=== PATIENT | female | born 1950 | race Caucasian/White ===

== ENCOUNTER 2020-09-16 13:31 | Emergency (ER) | payer OTHER ==
--- NOTE | 2020-09-16 15:59 | RAD REPORT ---
EXAM DESCRIPTION: RAD - Knee Left 3 View - 09/16/2020 3:01 pm CLINICAL HISTORY: PAIN, left knee, no precipitating event COMPARISON: No comparisons FINDINGS: No fracture, dislocation or periosteal reaction.No measurable joint effusion seen. There i s minimal spurring along the superior articular margin of the patella. No joint space narrowing. No s oft tissue abnormality. IMPRESSION: Negative left knee for acute bone or joint finding. Clinical concerns for internal derangement or occult bony injury could be further assessed with MR im aging.
[2020-09-16] MEDS ORDERED: HYDROCODONE/APAP 5/325 MG TAB ONE (16:47)
--- NOTE | 2020-09-16 17:25 | ER ---
Nurse's Notes [facility] Name: Darlene Carpio Age: 70 yrs Sex: Female : 1950 Arrival Date: 09/16/2020 Time: 14:12 Bed 23 Private MD: Diagnosis: Pain in left knee Presentation: 09/16 14:13 Chief complaint: Patient states: L knee pain for several weeks. No trauma or falls. ll1 Coronavirus screen: Client denies travel out of the [place] in the last 14 days. At this time, the client does not indicate any symptoms associated with coronavirus-19. Ebola Screen: Patient denies travel to an Ebola-affected area in the 21 days before illness onset. Initial Sepsis Screen: Does the patient meet any 2 criteria? No. Patient's initial sepsis screen is negative. Does the patient have a suspected source of infection? Yes: Bone or joint infection. Risk Assessment: Do you want to hurt yourself or someone else? Patient reports no desire to harm self or others. Onset of symptoms was August 27, 2020. 14:13 Method Of Arrival: Wheelchair ll1 14:13 Acuity: JESSIE 4 ll1 Historical: - Allergies: 14:16 PENICILLINS; ll1 - PMHx: 14:16 Diabetes - NIDDM; Hypertension; GERD; Depression; High Cholesterol; ll1 - PSHx: 14:16 knee, back, shoulders, wrist; Hysterectomy; ll1 - Immunization history:: Client reports receiving the 2nd dose of the Covid vaccine, Flu vaccine is up to date. - Social history:: Smoking status: Patient reports the use of cigarette tobacco products, smokes one pack cigarettes per day. Screenin:23 Abuse screen: Denies threats or abuse. Denies injuries from another. Nutritional ca1 screening: No deficits noted. Tuberculosis screening: No symptoms or risk factors identified. Fall Risk Ambulatory Aid- Crutches/Cane/Walker (15 pts). Total Stauffer Fall Scale indicates No Risk (0-24 pts). Assessment: 16:23 General: Appears in no apparent distress. comfortable, Behavior is calm, cooperative, ca1 appropriate for age. Pain: Complains of pain in left knee Pain currently is 8 out of 10 on a pain scale. at worst was 10 out of 10 on a pain scale. Pain began 3 weeks Aggravated by weight bearing. Neuro: Level of Consciousness is awake, alert, obeys commands, Oriented to person, place, time, situation, Appropriate for age. Derm: Skin is intact, is healthy with good turgor, Skin is pink, warm \T\ dry. Musculoskeletal: Circulation, motion, and sensation intact. Capillary refill < 3 seconds. Vital Signs: 14:13 BP 113 / 63; Pulse 77; Resp 16; Temp 97.1; Pulse Ox 98% ; Weight 76.66 kg; Height 5 ft. ll1 2 in. (157.48 cm); Pain 8/10; 16:23 BP 126 / 59; Pulse 77; Resp 18 S; Pulse Ox 98% on R/A; ca1 14:13 Body Mass Index 30.91 (76.66 kg, 157.48 cm) ll1 ED Course: 14:12 Patient arrived in ED. ll1 14:14 Triage completed. ll1 14:16 Arm band placed on. ll1 15:01 Knee Left 3 View XRAY In Process Unspecified. EDMS 16:05 Claudia Bolivar FNP-C is PHCP. kb 16:05 Evans Ram MD is Attending Physician. kb 16:09 Merna Raines, LOUISE is Primary Nurse. ca1 16:23 Patient has correct armband on for positive identification. Bed in low position. Call ca1 light in reach. Side rails up X 1. Pulse ox on. NIBP on. 17:24 US Extremity Venous Unilateral Ltd In Process Unspecified. EDMS 17:30 No provider procedures requiring assistance completed. Patient did not have IV access ca1 during this emergency room visit. Administered Medications: 16:31 Drug: [place] (HYDROcodone-acetaminophen) 5 mg-325 mg 1 tabs {Note: rass 0.} Route: PO; ca1 17:55 Follow up: Response: No adverse reaction; Pain is decreased; RASS: Alert and Calm (0) ca1 Outcome: 17:24 Discharge ordered by . kb 17:30 Discharged to home via wheelchair, with family. ca1 17:30 Condition: stable 17:30 Discharge instructions given to patient, Instructed on discharge instructions, follow up and referral plans. no drinking with medication, no driving heavy equipment, medication usage, Demonstrated understanding of instructions, follow-up care, medications, Prescriptions given X 1. 17:56 Patient left the ED. ca1 Signatures: Dispatcher [employer] Claudia Samano, INFECTIOUS DISEASES PHYSICIAN-C INFECTIOUS DISEASES PHYSICIAN-Merna Levin, RN RN ca1 Lauren Holm RN RN ll1
--- NOTE | 2020-09-16 17:25 | EDPHYS ---
Physician Documentation [facility] Name: Darlene Carpio Age: 70 yrs Sex: Female : 1950 Arrival Date: 09/16/2020 Time: 14:12 Bed 23 Private MD: ED Physician Evans Ram HPI: 09/16 17:43 This 70 yrs old Female presents to ER via Wheelchair with complaints of Knee kb Pain. 17:43 The patient presents with pain, that is acute. The patient has not experienced similar kb symptoms in the past. The patient has not recently seen a physician. 17:49 The complaints affect the left knee. Context: The problem was sustained at an unknown kb site, resulted from an unknown cause, the patient can fully bear weight, can ambulate using a cane, Problem is a result from a previous injury: No. Onset: The symptoms/episode began/occurred 3 week(s) ago. Modifying factors: The symptoms are alleviated by nothing. the symptoms are aggravated by bending knee. Associated signs and symptoms: The patient has no apparent associated signs or symptoms. Treatment prior to arrival includes: joshua wrap. Severity of symptoms: At their worst the symptoms were moderate, in the emergency department the symptoms are unchanged. Pt reports pain to left knee for 3 weeks, no injury or trauma. . Historical: - Allergies: 14:16 PENICILLINS; ll1 - PMHx: 14:16 Diabetes - NIDDM; Hypertension; GERD; Depression; High Cholesterol; ll1 - PSHx: 14:16 knee, back, shoulders, wrist; Hysterectomy; ll1 - Immunization history:: Client reports receiving the 2nd dose of the Covid vaccine, Flu vaccine is up to date. - Social history:: Smoking status: Patient reports the use of cigarette tobacco products, smokes one pack cigarettes per day. ROS: 17:42 Constitutional: Negative for fever, chills, and weight loss, Respiratory: Negative for kb shortness of breath, cough, wheezing, and pleuritic chest pain, Skin: Negative for injury, rash, and discoloration, Neuro: Negative for headache, weakness, numbness, tingling, and seizure. 17:42 MS/extremity: Positive for decreased range of motion, pain, of the left knee. Exam: 17:42 Constitutional: This is a well developed, well nourished patient who is awake, alert, kb and in no acute distress. Head/Face: Normocephalic, atraumatic. Respiratory: Respirations even and unlabored. No increased work of breathing, no retractions or nasal flaring. Skin: Warm, dry with normal turgor. Normal color. Neuro: Awake and alert, GCS 15, oriented to person, place, time, and situation. Moves all extremities. Normal gait. 17:42 Musculoskeletal/extremity: Extremities: grossly normal except: noted in the left knee: decreased ROM, pain, ROM: limited active range of motion due to pain, in the left knee, Circulation is intact in all extremities. Sensation intact. Weight bearing: can bear weight with assistance only, uses cane. Vital Signs: 14:13 BP 113 / 63; Pulse 77; Resp 16; Temp 97.1; Pulse Ox 98% ; Weight 76.66 kg; Height 5 ft. ll1 2 in. (157.48 cm); Pain 8/10; 16:23 BP 126 / 59; Pulse 77; Resp 18 S; Pulse Ox 98% on R/A; ca1 14:13 Body Mass Index 30.91 (76.66 kg, 157.48 cm) ll1 MDM: 16:05 Patient medically screened. kb 17:39 Data reviewed: vital signs, nurses notes. Data interpreted: Pulse oximetry: on room air kb is 98 %. Interpretation: normal. Counseling: I had a detailed discussion with the patient and/or guardian regarding: the historical points, exam findings, and any diagnostic results supporting the discharge/admit diagnosis, radiology results, the need for outpatient follow up, a family practitioner, to return to the emergency department if symptoms worsen or persist or if there are any questions or concerns that arise at home. 09/16 14:24 Order name: Knee Left 3 View XRAY; Complete Time: 16:05 kb 09/16 16:26 Order name: US Extremity Venous Unilateral Ltd kb Administered Medications: 16:31 Drug: [place] (HYDROcodone-acetaminophen) 5 mg-325 mg 1 tabs {Note: rass 0.} Route: PO; ca1 17:55 Follow up: Response: No adverse reaction; Pain is decreased; RASS: Alert and Calm (0) ca1 Disposition: 19:07 Co-signature as Attending Physician, Evans Ram MD. rn Disposition: 09/16/20 17:24 Discharged to Home. Impression: Pain in left knee. - Condition is Stable. - Discharge Instructions: Knee Pain, [id number]. - Prescriptions for Tramadol 50 mg Oral Tablet - take 1 tablet by ORAL route every 8 hours as needed; 12 tablet. - Medication Reconciliation Form, Thank You Letter, Antibiotic Education, Prescription Opioid Use form. - Follow up: Emergency Department; When: As needed; Reason: Worsening of condition. Follow up: Private Physician; When: 2 - 3 days; Reason: Recheck today's complaints, Continuance of care, Re-evaluation by your physician. Signatures: Dispatcher [employer] EDMS Claudia Bolivar, NATIONAL DEDICATED TRUCK DRIVER-C NATIONAL DEDICATED TRUCK DRIVER-CkEvans Armstrong MD MD rn Chipob, Merna RN RN ca1 Lauren Holm RN RN ll1 Corrections: (The following items were deleted from the chart) 17:56 17:24 09/16/2020 17:24 Discharged to Home. Impression: Pain in left knee. Condition is ca1 Stable. Forms are Medication Reconciliation Form, Thank You Letter, Antibiotic Education, Prescription Opioid Use. Follow up: Emergency Department; When: As needed; Reason: Worsening of condition. Follow up: Private Physician; When: 2 - 3 days; Reason: Recheck today's complaints, Continuance of care, Re-evaluation by your physician. kb
--- NOTE | 2020-09-16 17:59 | RAD REPORT ---
EXAM DESCRIPTION: US - Extremity Venous Uni Ltd - 09/16/2020 5:25 pm CLINICAL HISTORY: PAIN COMPARISON: None. TECHNIQUE: Real-time sonographic evaluation of the left lower extremity deep venous system was perfo rmed. FINDINGS: Normal compressibility, flow augmentation, phasic flow and spontaneous flow are identified in the left lower extremity common femoral, superficial femoral, popliteal and posterior tibial vein s. No intraluminal filling defects seen. IMPRESSION: No DVT in the left lower extremity.
[2020-09-16 18:01] VITALS: TEMP 97.1; O2SAT 98
[2020-09-16 18:08] VITALS: BP 126/59
== END 2020-09-16 17:56 | disposition home or self-care (01) ==
LOC: ER 13:31
DX: M25.562 Pain in left knee (principal); I10 Essential (primary) hypertension; E11.9 Type 2 diabetes mellitus without complications; F17.210 Nicotine dependence, cigarettes, uncomplicated; Z88.0 Allergy status to penicillin
CPT/HCPCS: 93971; 99284

== ENCOUNTER 2021-08-10 05:28 | Observation (INO) | payer OTHER ==
[2021-08-05 09:58] LABS: Absolute Lymphocytes (CBC) 3.8 K/uL (0.7-4.9); Hematocrit 34.3 % (36.0-45.0); Lymphocytes % 23.8 % (15.3-44.8); RBC Red Blood Cell Count 4.03 M/uL (3.86-4.86)
[2021-08-05 09:58] LABS: Urine Appearance CLEAR (Clear); Urine Bilirubin NEGATIVE (Negative); Urine Blood NEGATIVE (Negative); Urine Color YELLOW (Yellow); Urine Glucose NEGATIVE (Negative); Urine Protein NEGATIVE (Negative); Urine Urobilinogen 0.2 mg/dL (0.2-1.0); Urine pH 6.5 (5.0-7.0)
[2021-08-05 09:59] LABS: Urine Microscopic Reflex NO UMIC
--- NOTE | 2021-08-05 10:05 | RAD REPORT ---
EXAM DESCRIPTION: RAD - Chest Pa And Lat (2 Views) - 08/05/2021 9:54 am CLINICAL HISTORY: pre op pending left knee arthroplasty Chest pain. COMPARISON: No comparisons FINDINGS: The lungs are clear. The heart is normal in size. No displaced fractures. IMPRESSION: No acute or concerning finding suspected.
[2021-08-05 10:06] LABS: Protime INR 0.87
[2021-08-05 10:29] LABS: Albumin 3.9 g/dL (3.4-5.0); Bilirubin Total 0.4 mg/dL (0.2-1.0); Potassium 4.5 mmol/L (3.5-5.1); Protein, Total 7.5 g/dL (6.4-8.2)
[2021-08-10] MEDS ORDERED: FENTANYL CITR 100 MCG/2 ML ONE (05:48)
[2021-08-10] MEDS ORDERED: dexAMETHasone 10 MG/ML VIAL ONE ×2 (05:48→06:05)
[2021-08-10] MEDS ORDERED: MIDAZOLAM HCL 2 MG/2 ML INJ ONE (05:48)
[2021-08-10] MEDS ORDERED: LIDOCAINE 1% MPF 5 ML VIAL ONE (05:48)
[2021-08-10] MEDS ORDERED: BUPIVACAINE 0.25% PF 10 ML VIAL ONE (05:48)
[2021-08-10] MEDS ORDERED: SODIUM BICARB 50 MEQ/50ML VIAL ONE (05:49)
[2021-08-10] MEDS ORDERED: CELECOXIB 100 MG CAPSULE ONE (05:57)
[2021-08-10] MEDS ORDERED: ACETAMINOPHEN 500 MG TAB ONE (05:58)
[2021-08-10] MEDS ORDERED: Oxycodone HCl/Acetaminophen 1 TAB TAB ONE (05:58)
[2021-08-10] MEDS ORDERED: GABAPENTIN 100 MG CAP ONE (05:58)
[2021-08-10] MEDS ORDERED: NA CHLORIDE 0.9% 1,000 ML ONE ×2 (05:59→09:44)
[2021-08-10] MEDS ORDERED: propofoL 200 MG/20 ML VIAL IV ONE (06:05)
[2021-08-10] MEDS ORDERED: KETOROLAC 30 MG/ML INJ ONE (06:05)
[2021-08-10] MEDS ORDERED: KETAMINE HCL 500 MG/5 ML VIAL ONE (06:05)
[2021-08-10] MEDS ORDERED: ONDANSETRON 4 MG/2 ML VIAL ONE (06:05)
[2021-08-10] MEDS ORDERED: LIDOCAINE 2% MPF 5 ML VIAL ONE (06:05)
[2021-08-10] MEDS ORDERED: HYDROMORPHONE HCL 1 MG/ML INJ ONE (07:14)
[2021-08-10] MEDS ORDERED: D5W IV ONE (07:30)
[2021-08-10] MEDS ORDERED: TRANEXAMIC ACID 1,000 MG in NA CHLORIDE 0.9% 50 ML IV SCH (07:30)
[2021-08-10] MEDS ORDERED: CLINDAMYCIN IV ONE (07:30)
[2021-08-10] MEDS ORDERED: ONDANSETRON 4 MG/2 ML VIAL IV PRN (09:06)
[2021-08-10] MEDS ORDERED: DOCUSATE NA 100 MG CAP PO PRN (09:06)
--- NOTE | 2021-08-10 09:06 | P.BOP ---
Preoperative diagnosis: left knee arthritis Postoperative diagnosis: same Primary procedure: left total knee arthoplasty Estimated blood loss: 50ccs Anesthesia: General Complications: None Transferred to: Recovery Room Condition: Good
[2021-08-10] MEDS ORDERED: ESMOLOL HCL 10 ML IV ONE (09:17)
[2021-08-10] MEDS: HYDROMORPHONE HCL 1 MG/ML INJ ONE ×2 (09:35→10:45)
[2021-08-10] MEDS ORDERED: PROMETHAZINE INJ 25 MG/ML AMP ONE (09:38)
--- NOTE | 2021-08-10 09:43 | OP ---
Date of Procedure: 08/10/2021 Surgeon: Tung Fowler MD Preoperative Diagnosis: Left knee arthritis. Postoperative Diagnosis: Left knee arthritis. Procedure: Left total knee arthroplasty using [email or web address] total knee system. Estimated Blood Loss: 50 cc. Complications: There were no complications. Indication For Operation: Ms. Carpio is a 71-year-old female, who unfortunately had pain in her left k nee for quite some time. This persisted despite conservative care. Risks, benefits, and alternative s to total knee arthroplasty have been discussed with the patient in detail. She states that she und erstands things as presented and requests a total knee arthroplasty and agrees to proceed. Description Of Procedure: The patient was taken to the operating room and placed in supine position. General anesthesia was obtained by staff. Following this, a well-padded tourniquet was placed on t he superior left thigh. Left lower extremity was then prepped and draped in the usual sterile fashio n. Following this, the leg was then elevated, exsanguinated, and knee was bent. The tourniquet was raised. After this, a standard anterior midline incision was taken down carefully through the skin a nd soft tissues. Meticulous hemostasis was being maintained using Bovie electrocautery. This leads down to the extensor mechanism. Extensor mechanism was then divided using a standard medial parapate llar arthrotomy. There was a scanty appearing normal joint fluid. Following this, the knee was then extended. The patella was everted. There was found to be degenerative changes of both the patella as well as reciprocal changes along the trochlea. There were also some degenerative changes of the l ateral compartment; however, was not extensive amount of arthritic change. Following this, a standar d intramedullary alignment guide was then placed with the distal cut. The distal cut was then made. It was then sized and the distal femur was then cut in standard fashion. After this, attention was then brought to the tibia, which was then cut in standard fashion. The ACL, PCL, and menisci have be en previously resected. After this, attention was then turned to patella and was found to be only 20 mm thick. Decision was made to leave 13 mm and a patellar cut was made medializing the patellar imp lant in the patella. The trial implants were then placed. It was then brought through range of ziggy on. The patella was found to track well and appeared to be well aligned. After this, the trial comp onents were removed. The box was then cut in standard fashion followed by punching of the tibia. Th e joint surfaces were then prepped for cementation. After this, the final tibia, femur, and patella are cemented into place with the polyethylene trial being used as a spacer as the cement was allowed to harden. Following this, a size 12 polyethylene was then placed and locked in position using locki ng bar. The knee was then again examined to ensure there were no unsupported cement also. It does c ome to full extension quite easily with full flexion and appeared to be balanced in flexion and exten pepito. Also stable to varus, valgus, appears to have excellent alignment. Patella tracked well. Aft er this, the wound was again irrigated and the extensor mechanism was then repaired using heavy Ethib ond sutures. This was followed by irrigation and closure of skin using Vicryl followed by octavio. The patient was then placed in a well-padded sterile dressing, awakened, and taken to recovery in goo d condition. No complications. SE/MODL Voice ID: [id number] Report ID: [id number]
--- OUTSIDE RECORDS SUMMARY | 2021-08-10 10:29 | XMS REPORT | Continuity of Care Document ---
:1950 Author Organization [facility] t Address [address] [place] [address] Care Team Providers Name Role Phone Solcher Attending Clinician Unavailable Garry Bass Attending Clinician Unavailable Partha Alvarado Attending Clinician Unavailable Zack Nava Attending Clinician Unavailable BISMARK Damon Attending Clinician Unavailable PROVIDER, TAIWO Attending Clinician Unavailable Payers Payer Name Policy Type Policy Number Effective Date Expiration Date S ource Problems Condition Condition Condition Status Onset Resolution Last Treating Co mments Source Name Details Category Date Date Treatment Clinician Date Problem No known ASSERTION [facility] Allergies, Adverse Reactions, Alerts Allergy Allergy Status Severity Reaction(s) Onset Inactive Treating Comm ents Source Name Type Date Date Clinician Penicill DA Active U 2019-[address] [facility] [facility] [place] Penicill Allergy Active 2020-[address] [facility] 5[facility]18 [facility] [place] ([place] Social History Smoking Status Start Date Stop Date Source Unknown if ever smoked [facility] Medications Ordered Filled Start Stop Current Ordering Indication Dosage Frequency Signature Comments Components Source Medication Medication Date Date Medication? Clinician (SIG) Name Name Meloxicam 2019-0 No General 15MG Daily [facility] [place] ([place] Metformin 2020-0 No General 500MG Twice [facility] Daily [facility] [place] ([place] Omeprazole 2019-0 No General 20MG Bedtime [facility] - [facility] [place] ([place] Atorvastati 2019-0 No General 40MG Bedtime [facility] Calcium 5-18 [facility] - 00:00: Hospital [address] [place] Bupropion 2020-0 No General 300MG Daily [facility] [address] [place]) Fluoxetine 2020-0 No General 20MG Daily [facility] - 00[facility]: Hospital [address] [place]) Hydrocodone 2020-0 No General 1TAB As Needed [facility] /Acetaminop 5-18 Acute Care PRN For [facility] 00:[facility]: Hospital Pain [address] [place]) Levothyroxi 2020-0 No General 50MCG Daily [facility] ne Sodium 5-18 Acute Care [facility] - 00:00: Hospital [address] [place]) Lisinopril 2020-0 No General 2.5MG Bedtime [facility] - [facility] [address] [place]) Meloxicam 2020-0 No General 15MG Daily [facility] - 00[facility]: Hospital [address] [place]) Metformin 2020-0 No General 500MG Twice [facility] Daily [facility] - 00:[facility]: Hospital [address] [place]) Omeprazole 2020-0 No General 20MG Bedtime [facility] 5[facility]18 [facility] - 00:00: Hospital [address] [place]) Atorvastati 2020-0 No General 40MG Bedtime [facility] Calcium 5-18 Acute Care [facility] - 00:00: Hospital [address] [place]) Bupropion 2020-0 No General 300MG Daily [facility] - 00:[facility]: Hospital [address] [place]) Fluoxetine 2020-0 No General 20MG Daily [facility] - 00:[facility]: Hospital [address] [place]) Hydrocodone 2020-0 No General 1TAB As Needed [facility] /Acetaminop 5-18 Acute Care PRN For [facility] - hen 00:00: Hospital Pain [address] [place]) Levothyroxi 2020-0 No General 50MCG Daily [facility] Sodium 5-18 Acute Care [facility] - 00:00: [facility] ([place] Lisinopril No General 2.5MG Bedtime [facility] - 00:[facility]: Hospital [address] ([place]) Vital Signs Vital Name Observation Time Observation Value Comments Source WEIGHT 2021-04-02 16:03:39 80.088899 kg HEIGHT 2021-04-02 16:03:39 154.94 cm WEIGHT 2021-04-02 15:59:13 80.577700 kg HEIGHT 2021-04-02 15:59:13 154.94 cm WEIGHT 2021-04-02 15:55:41 80.224378 kg HEIGHT 2021-04-02 15:55:41 154.94 cm WEIGHT 2021-04-02 15:53:11 80.417228 kg HEIGHT 2021-04-02 15:53:11 154.94 cm Body Temperature 2021-03-31 10:48:[address] [facility] ([place]) Heart Rate 2021-03-31 10:48:[address] [facility] ([place]) Respiratory Rate 2021-03-31 10:48:[facility] O2 % BldC Oximetry 2021-03-31 10:48:[address] [facility] ([place]) BP Systolic 2021-03-31 10:48:[address] [facility] ([place]) BP Diastolic 2021-03-31 10:48:[address] [facility] ([place]) Height 2019-10-14 13:48:00 154.94 [address] [facility] ([place]) Weight Measured 2019-10-14 13:48:00 80.73 kg [facility] ([place]) BMI (Body Mass Index) 2019-10-14 13:48:00 33.6 kg/m2 [facility] ([place]) Procedures Procedure Date / Time Performed Performing Clinician Sourc e XR Fluoro Per Hour 2019-10-16 00:00:[address] [facility] ([place]) EKG 12 Lead 2019-10-14 00:00:[address] [facility] ([place]) Encounters Start End Encounter Admission Attending Care Care Encounter Source Date/Time Date/Time Type Type Clinicians Facility Department ID 2021-06-[address] [facility] [id number] [facility] ent [facility] 2017-04-25 [id number]:00 Yoseph -[id number] Geeta Titus ([facility] n) 2019-10-16 2019-10-16 Departed Ritchie Bass [id number]. [facility] [id number] [facility] 06:55:00 14:30:00 Surgical Lam [id number]. Regional [facility] [id number]. [facility] St. 1.2 Jabari Elizondo) 2019-10-16 2019-10-16 Outpatient Shelia [facility] [id number] 13:30:00 13:30:00 Lam -[id number] Julian [facility] ([place]) 2019-10-14 2019-10-14 Outpatient Shelia [facility] [id number] 13:30:00 13:30:00 Lam -[id number] Julian [facility] ([place]) 2019-10-14 2019-10-14 Departed Ritchie Bass 2.16.840. [facility] J000 [id number] [facility] 07:45:00 07:46:00 Clinical Lam [id number]. Regional [facility] [id number]. [facility] C[facility] St. 1.2 [place] ([place]) 2019-08-13 2019-08-13 Outpatient Shelia [facility] [id number] 11:00:00 11:00:00 Lam -[id number] Julian [facility] ([place]) 2019-03-18 2019-03-18 Outpatient Lam Campbell [facility] [id number] [facility] 09:49:00 09:50:00 -[id number] Julian [facility] ([place]) 2019-01-31 2019-02-25 Outpatient MELISA Lomas [id number] [facility] 08:00:00 23:59:00 Sameer -[id number] Julian Titus ([facility] n) 2019-01-25 2019-01-26 Outpatient MELISA Lomas [id number] 10:00:00 23:59:00 Sameer -[id number] Julian Titus ([facility] n) 2017-06-01 2017-06-28 Outpatient MELISA Martinez [id number] 11:00:00 23:59:00 Yoseph [id number] Julian Titus ([facility]) 2017-05-25 2017-05-28 Outpatient MELISA Martinez [id number] 11:00:00 23:59:00 Yoseph -[id number] Julian Titus ([facility]) 2017 2017 Emergency ER JAMES Damon [facility] [id number] 12:37:00 15:15:00 Melyssa [id number] Tyrone [facility] ([place]) Results Test Description Test Time Test Comments Results Result Comments Source Reference Lab Testing 2019-10-15 11:53:00 Test Item Value Reference Range Interpretation Comme nts Reference Lab Testing Not Detected NotDetected Negati ve (Not Detected) results (test code = [id number]) do no t preclude infectionwith SARS-CoV-2 viru s, and should not be the sole bas is of apatient management deci pepito. Consider testing for oth erviruses if clinically alfred cated.The use of this assay as a n In vitro diagnostic unde r theFDA Emergency Use Authorizati on (EUA) is limited tolabor atories that are certified under the ClinicalLaborat ory Improvement Amendments of 1 988 (CLIA), 42 U.S.C.263a, to perform high complexity test s. Comment ER 10/15Laboratory [id number] 14:35:00Coronavirus (COVID-19)(PCR) [facility] ([place])[id number] 14:35:00 Test Item Value Reference Range Interpretation Comments Urinalysis (test code = YELLOW Yellow UACLR) Urinalysis (test code = CLEAR Clear UACLY) Urinalysis (test code = 1.027 1.002-1.036 N SPGR) Urinalysis (test code = 6.0 5.0-9.0 N ARELY) Urinalysis (test code = Small Negative A UALEU) Urinalysis (test code = Negative Negative UANIT) Urinalysis (test code = Negative mg/dL Neg-Trace PROUADIP) Urinalysis (test code = Negative mg/dL Negative GLUCU) Urinalysis (test code = Negative mg/dL Negative KETU) Urinalysis (test code = 1.0 mg/dL 0.2-1.0 UAUROB) Urinalysis (test code = Negative Negative UABIL) Urinalysis (test code = Negative Negative UABLD) Urinalysis (test code = 0-3 HPF 0-3 UARBC) Urinalysis (test code = 11-20 HPF 0-3 A UAWBC) Urinalysis (test code = 7-10 HPF 0-3 A UASQUAM) Urinalysis (test code = None Seen HPF None Seen UABAC) Urinalysis (test code = 0-3 HYALINE CAST LPF 0-3 Hyaline UACAST) Urine Source: Urine VoidedCT Lumbar Spine [facility] Pt Name: ABEBA NICOLE [address] [facility]. Phys: [place] [address] : 1950 Age: 69 SEX:F [phone] Exam Date: 08/13/19 Status: REG CLI Acct: [id number] Loc: BICCT Pt Unit #: [id number] Report #: [id number] CC: Lam Bass MD CAT SCAN REPORT Order # Category/Exam [id number] CT/CT Lumbar Spine WO Con ([id number]): . Results Exam: CT lumbar spine without contrast HISTORY: Low back pain. Bilateral lower extremity radiculopathy. Comparison none FINDINGS: No paraspinal mass, lymphadenopathy orhematoma. Atherosclerosis of a nonaneurysmal aorta Visualized alimentary canal is unremarkable. Nonobstructing calcification in the right renal pelvis. 5 lumbar type vertebra. Lumbar spine vertebral body height is maintained. There is no fracture. No spondylolisthesis. No spondylolysis Vacuum joint phenomenon in both SI joints. Sacral ala are preserved. Sacral neural foramina are also unremarkable. There is appropriate fat attenuation in left and right neural foramina at S1, S2 and S3. Thereis no presacral fat stranding. Technique limits evaluation of the contents of the central spinal canal and neural foramina T12-L1: No significant central canal stenosis or significant neural foraminal narrowing L1-L2: No significant central canal stenosis or significant neural foraminal narrowing L2-L3: Moderate loss of disc space height. Broad-based disc bulge, ligamentum flavum thickening and facet hypertrophy result in mild central canal stenosis. Mild bilateral neural foraminal narrowing L3-L4: Vacuum disc phenomenon. Moderate loss of disc space height. Broad-based disc bulge, ligamentum flavum thickening and facet hypertrophy result in moderate central canal stenosis. Moderate bilateral neural foraminal narrowing L4-L5: Broad-based disc bulge, ligament flavum thickening and facet hypertrophy result in mild central canal stenosis. Mild to moderate bilateral neural foraminal narrowing L5-S1: Broad-based disc bulge abuts the thecal sac. There is encroachment upon both subarticular zones. Partial obscuration of bilateral traversing S1 nerve roots. Mild bilateral foraminal narrowing. IMPRESSION: 1. Multilevel degenerative changes lumbar spine as detailed above. 2. No evidence of fracture. Reported By: Jacqui Kim MD Electronically Signed Date/Time: 08/13/19 1202 Technologist: TOYIN Dictated Date/Time: 08/13/19 1157 Transcribed Date/Time:MRI Lumbar Spine [facility] Pt Name: ABEBA NICOLE [address] [facility]. Phys: [place] [address] : 1950 Age: 69 SEX:F [phone] Exam Date: 03/18/19 Status: REG CLI Acct: [id number] Loc: [facility] Pt Unit #: [id number] Report #: [id number] CC: Lam Alvarado NP OUT OF TOWN PHYSICIAN MRI REPORT Order # Category/Exam [id number] MRI/MRI Lumbar Spine WO Con ([id number]): . Results MRI LUMBAR SPINE NONCONTRAST: HISTORY: Compression fracture of the lumbar vertebrae. Low back pain for many years. COMPARISON: Lumbar spine MRI [facility] is not available for comparison at this time. FINDINGS: Slightly heterogeneous marrow signal intensity of the lumbar vertebra likely representing senescent change. Lumbarspine vertebral body height is maintained. There is no fracture. No significant STIR hyperintensity to suggest vertebral body edema or ligamentous injury. Appropriate signal intensity of the paraspinal muscles. Appropriate signal intensity of the visualized solid organs. Conus medullaris terminates at the T12-L1 disc space. T12-L1:No significant central canal stenosis or significant neural foraminal narrowing. L1-L2:Disc desiccation without significant loss of disc space height. Minimal broad-based disc bulge flattens the ventral thecal sac. No significant central canal stenosis or significant neural foraminal narrowing. L2-L3:Desiccation with mild to moderate loss of disc space height. Broad-based disc bulge, ligamentum flavum thickening and facet hypertrophyresult in moderate central canal stenosis. Mild to moderate right neural foraminal narrowing. Mildleft neural foraminal narrowing. L3- L4:Desiccation with moderate to severe loss of disc space height. Broad-based disc bulge, ligament flavum thickening and facet hypertrophy result in moderate central canal stenosis. Mild to moderate bilateral neural foraminal narrowing. L4-L5:Desiccationwithout significant loss of disc space height. Broad-based disc bulge, ligament flavum thickening and facet hypertrophy result in mild central canal stenosis. Mild to moderate right and mild left neural foraminal narrowing. L5-S1:Desiccation without significant loss of disc space height. Central disc protrusion. Ligament flavum thickening and facet hypertrophy are noted. Mild central canal stenosis. Mild right and left neural foraminal narrowing. IMPRESSION: Degenerative changes of the lumbar spine as detailed above. Transcribed Date/Time: 03/18/2019 12:21 PM Reported By: Jacqui Kim MD Electronically Signed Date/Time: 03/18/19 1310 Technologist: RANDI Dictated Date/Time: 03/18/19 1133 Transcribed Date/Time:
[2021-08-10 13:02] VITALS: BMI 29.2
--- NOTE | 2021-08-10 13:22 | P.CNS ---
Date of Consult: 08/10/21 Requesting Physician: Tung Fowler Chief Complaint: Left knee pain History of Present Illness: Patient is 71-year-old female with a past medical history of tobacco smoking, COPD, hypertension, hyperlipidemia and type 2 diabetes mellitus. She is currently admitted under orthopedic surgery for an elective knee replacement. Today is postop day 0 status post left total knee arthroplasty. Patient was seen by me after her surgery for medical management. During our encounter, her mental status was intact. Her pain was controlled. There was no acute complaints. Allergies Penicillins Allergy (Verified 08/05/21 08:56) Unsure, told as child Home Medications: Albuterol Inhaler [Ventolin Inhaler] 2 puff IH Q6H PRN 08/05/21 Atorvastatin Calcium [Lipitor] 40 mg PO BEDTIME 08/05/21 Cyclobenzaprine [Flexeril] 10 mg PO DAILYPRN PRN 08/05/21 Diclofenac Sodium [Voltaren] 75 mg PO DAILYPRN PRN 08/05/21 Furosemide [Lasix] 40 mg PO DAILY 08/05/21 Gabapentin 300 mg PO BEDTIME 08/05/21 Levothyroxine [Synthroid] 50 mcg PO [id number] 08/05/21 Lisinopril [Zestril] 2.5 mg PO BEDTIME 08/05/21 Metformin HCl [Glucophage] 500 mg PO BIDWM 08/05/21 Omeprazole 20 mg PO DAILY 08/05/21 Ondansetron HCl 4 mg PO PRN PRN 08/05/21 Sertraline [Zoloft] 100 mg PO DAILY 08/05/21 - Past Medical/Surgical History Diabetic: Yes -: DM -: hypertension -: hypothyroid -: depression -: sleep apnea -: emphysema -: right knee replaced -: bilateral shoulder rotator cuff -: back surgery, removed L4 -: appendectomy -: right wrist twice -: cataracts - Family History Mother Medical History: Heart disease, Hypertension, Diabetes Notes: age 84 Father Medical History: Heart disease, Hypertension, Other (see notes) Notes: passed at age 65. 3 heart attacks - Social History Smoking Status: Current every day smoker Alcohol use: Yes CD- Drugs: No Caffeine use: Yes Place of Residence: Home Physical Examination Temp Pulse Resp BP Pulse Ox 98.3 F 82 18 115/60 100 08/10/21 11:47 08/10/21 11:47 08/10/21 11:47 08/10/21 11:47 08/10/21 11:47 General: Alert, In no apparent distress, Cooperative HEENT: Atraumatic, Normocephalic Neck: Supple Respiratory: Clear to auscultation bilaterally, Normal air movement Cardiovascular: Regular rate/rhythm, Normal S1 S2 Gastrointestinal: Soft and benign, Non-distended Musculoskeletal: No contractures, No erythema Neurological: Normal speech, Normal affect - Problems (1) Hypertension Current Visit: Yes Status: Acute (2) Status post total left knee replacement Current Visit: Yes Status: Acute (3) Type II diabetes mellitus Current Visit: Yes Status: Acute (4) COPD (chronic obstructive pulmonary disease) Current Visit: Yes Status: Acute (5) Tobacco smoker within last 12 months Current Visit: Yes Status: Acute Physician Review Additional Text: Assessment Patient is a 71 year old female with a PMH of HTN, Type II diabetes mellitus, HLD, and COPD. She is admitted for elective surgery of L knee osteoarthritis. Osteoarthritis COPD HTN Type II diabetes mellitus HLD Tobacco smoking PLAN: POD#0 S/P L TKA Continue MMP regimen and DVT ppx PT/OT post op Resume medications for her chronic conditions Do not hesitate to reach out for questions
[2021-08-10] MEDS: CLINDAMYCIN INJ 900 MG in NA CHLORIDE 0.9% 50 ML IV SCH (16:29)
[2021-08-10] MEDS: HYDROCODONE/APAP 7.5/325 MG TAB PO PRN (20:01)
[2021-08-11] MEDS: CLINDAMYCIN INJ 900 MG in NA CHLORIDE 0.9% 50 ML IV SCH (00:06)
[2021-08-11] MEDS: HYDROCODONE/APAP 7.5/325 MG TAB PO PRN ×2 (03:15→09:08)
[2021-08-11 03:46] LABS: Hematocrit 29.2 % (36.0-45.0)
[2021-08-11] MEDS ORDERED: ENOXAPARIN 30 MG/0.3 ML SQ SCH (06:00)
[2021-08-11 08:08] LABS: Absolute Lymphocytes (CBC) 2.6 K/uL (0.7-4.9); Hematocrit 27.4 % (36.0-45.0); Lymphocytes % 13.9 % (15.3-44.8); MPV 8.2 fL (7.6-11.3); RBC Red Blood Cell Count 3.26 M/uL (3.86-4.86)
--- NOTE | 2021-08-11 10:18 | P.PN ---
Subjective Date of Service: 08/11/21 Chief Complaint: Left knee pain Subjective: Improving (POD # 1 S/P L TKA) Physical Examination - Vital Signs Temperature: 98.4 F Blood Pressure: 111/57 Pulse: 78 Respirations: 18 Pulse Ox (%): 99 - Physical Exam General: Alert, In no apparent distress, Cooperative HEENT: Atraumatic, Normocephalic Neck: Supple Respiratory: Normal air movement Musculoskeletal: No clubbing, No swelling, No contractures Neurological: Normal speech, Normal affect - Studies Laboratory Data (last 24 hrs) 08/11/21 07:45: WBC 18.90 H D, Hgb 9.1 L, Hct 27.4 L, Plt Count 383 08/11/21 03:18: Hgb 9.6 L, Hct 29.2 L Assessment And Plan - Current Problems (Diagnosis) (1) Hypertension Current Visit: Yes Status: Acute (2) Status post total left knee replacement Current Visit: Yes Status: Acute (3) Type II diabetes mellitus Current Visit: Yes Status: Acute (4) COPD (chronic obstructive pulmonary disease) Current Visit: Yes Status: Acute (5) Tobacco smoker within last 12 months Current Visit: Yes Status: Acute Physician Review Additional Text: 08/11/21 10:19 Assessment Patient is a 71 year old female with a PMH of HTN, Type II diabetes mellitus, HLD, and COPD. She is admitted for elective surgery of L knee osteoarthritis. Osteoarthritis COPD HTN Type II diabetes mellitus HLD Tobacco smoking PLAN: POD#1 S/P L TKA Patient has done well on MMP regimen and DVT ppx She can be discharged if cleared by Ortho and PT Please reach out for any questions
[2021-08-11 12:06] VITALS: BP 130/78; TEMP 97.9; O2SAT 100
[2021-08-11 16:32] LABS: Blood Morphology Comment NOT SEEN (NOT SEEN); Platelet Estimate ADEQ; White Blood Cell Scan OK (OK)
== END 2021-08-11 13:15 | disposition home health service (06) ==
LOC: OR 05:28 → 4TH 10:26
PROVIDERS: ADMIT Orthopaedic Surgery; ATTEND Orthopaedic Surgery
PROC: 0SRD069 Replacement of Left Knee Joint with Oxidized Zirconium on Polyethylene Synthetic Substitute, Cemented, Open Approach (ICD-10-PCS; principal; 2021-08-10 07:00)
DX: M17.12 Unilateral primary osteoarthritis, left knee (principal); I10 Essential (primary) hypertension; E11.9 Type 2 diabetes mellitus without complications; J44.9 Chronic obstructive pulmonary disease, unspecified; G47.33 Obstructive sleep apnea (adult) (pediatric); E03.9 Hypothyroidism, unspecified; J43.9 Emphysema, unspecified; E78.00 Pure hypercholesterolemia, unspecified; E78.5 Hyperlipidemia, unspecified; R12 Heartburn; F32.A Depression, unspecified; Z87.891 Personal history of nicotine dependence; Z79.899 Other long term (current) drug therapy; Z88.0 Allergy status to penicillin; Z20.822 Contact with and (suspected) exposure to COVID-19; Z82.49 Family history of ischemic heart disease and other diseases of the circulatory system; Z83.3 Family history of diabetes mellitus
CPT/HCPCS: 85025 ×2; 36415 ×2; 86900; 86850; 85610; 86901; 82947 ×3; 88304; 88311; 85730; 85018; 85014; 81003; 80053; 71046; 97116 ×3; 97139; 97161; 97530; 94010; 27447; U0002; J2704; J2550; J1650; J2250; J3010; J1100 ×2; J1170 ×2; J7030 ×2; J2405

== ENCOUNTER 2021-10-04 08:33 | Emergency (ER) | payer OTHER ==
--- OUTSIDE RECORDS SUMMARY | 2021-10-04 08:36 | XMS REPORT | Continuity of Care Document ---
:1950 Author Organization [facility] t Address [address] [place] [address] Care Team Providers Name Role Phone Solcher [...] Problem No known ASSERTION [facility] [place] ([place] Allergies, Adverse Reactions, Alerts Allergy Allergy Status Severity Reaction(s) Onset Inactive Treating Comm ents Source Name Type Date Date Clinician Penicill DA Active U 2019-0 NPI:[id number] ins -[id number] 00:00: 00 Penicill Allergy Active 2020-[address] [facility] [address] [facility] 00 [place] ([place]) Social History Smoking Status Start Date Stop Date Source Unknown if ever smoked [facility] [place] ([place] Medications Ordered Filled Start Stop Current Ordering Indication Dosage Frequency Signature Comments Components Source Medication Medication Date Date Medication? Clinician (SIG) Name Name Meloxicam 2019-0 No General 15MG Daily [facility] 00 [place] ([place]) Metformin 2020-0 No General 500MG Twice [facility] 5[facility]18 [facility] Daily [facility] - [facility] 00 [place] Mikhail) Omeprazole 2020-0 No General 20MG Bedtime [facility] 5-18 [facility] - 00:[facility] Hospital [facility] 00 [place] Mikhail) Atorvastati 2020-0 No General 40MG Bedtime [facility] Calcium 5-18 Acute Care Luke s - 00:00: Hospital [facility] J[facility] Mikhail) Bupropion 2020-0 No General 300MG Daily [facility] - 00:[facility] [place] Mikhail) Fluoxetine 2020-0 No General 20MG Daily [facility]: Hospital [address] Mikhail) Hydrocodone 2020-0 No General 1TAB As Needed [facility] /Acetaminop 5-18 Acute Care PRN For [facility] - hen 00:00: Hospital Pain [facility] [address] [place] [address] Mikhail) Levothyroxi 2020-0 No General 50MCG Daily C HI [facility] ne Sodium 5-18 Acute Care [facility] - 00:00: Hospital [address] Mikhail) Lisinopril 2020-0 No General 2.5MG Bedtime [facility] - [facility] Hospital [address] Mikhail) Meloxicam 2020-0 No General 15MG Daily [facility] - 00:[facility]: Hospital [address] Mikhail) Metformin 2020-0 No General 500MG Twice [facility] 5-18 Acute Care Daily [facility] - 00:[facility]: Hospital [address] Mikhail) Omeprazole 2020-0 No General 20MG Bedtime [facility] 5-18 [facility] - 00:[facility]: Hospital [address] Mikhail) Atorvastati 2020-0 No General 40MG Bedtime [facility] Calcium 5-18 Acute Care [facility] - 00:00: Hospital [address] Mikhail) Bupropion 2020-0 No General 300MG Daily [facility]18 [facility] - 00:[facility]: Hospital [address] Mikhail) Fluoxetine 2020-0 No General 20MG Daily [facility]18 [facility] - 00:[facility]: Hospital [address] Mikhail) Hydrocodone 2020-0 No General 1TAB As Needed [facility] /Acetaminop 5-18 Acute Care PRN For [facility] - hen 00:00: Hospital Pain [facility] [address] [place] [address] Mikhail) Levothyroxi 2020-0 No General 50MCG Daily C HI [facility] ne Sodium 5-18 Acute Care [facility] - 00:00: Hospital [address] ([place]) Lisinopril No General 2.5MG Bedtime [facility] St. 10-13 Acute Care [facility] - 00:00: Hospital [address] ([place]) Vital Signs Vital Name Observation Time Observation Value Comments Source WEIGHT 2021-04-02 16:03:39 80.178010 kg HEIGHT 2021-04-02 16:03:39 154.94 cm WEIGHT 2021-04-02 15:59:13 80.196874 kg HEIGHT 2021-04-02 15:59:13 154.94 cm HEIGHT 2021-04-02 15:55:41 154.94 cm WEIGHT 2021-04-02 15:55:41 80.304116 kg WEIGHT 2021-04-02 15:53:11 80.552054 kg HEIGHT 2021-04-02 15:53:11 154.94 cm Body Temperature 2021-03-31 10:48:34 [facility] ([place]) Heart Rate 2021-03-31 10:48:34 [facility] ([place]) Respiratory Rate 2021-03-31 10:48:34 [facility] ([place]) O2 % BldC Oximetry 2021-03-31 10:48:34 [facility] ([place]) BP Systolic 2021-03-31 10:48:34 [facility] ([place]) BP Diastolic 2021-03-31 10:48:34 [facility] ([place]) Height 2019-10-14 13:48:00 154.94 cm [facility] ([place]) Weight Measured 2019-10-14 13:48:00 80.73 kg [facility] S [facility] ([place]) BMI (Body Mass Index) 2019-10-14 13:48:00 33.6 kg/m2 [facility] ([place]) Procedures Procedure Date / Time Performed Performing Clinician Sourc e XR Fluoro Per Hour 2019-10-16 00:00:[address] [facility] ([place]) EKG 12 Lead 2019-10-14 00:00:00 [facility] ([place]) Encounters Start End Encounter Admission Attending Care Care Encounter Source Date/Time Date/Time Type Type Clinicians Facility Department ID 2021-09-[address] [facility] [id number] NPI:[id number] 10:27:03 [id number] 2021-06-23 Outpatient [facility] [id number] NPI:174 14:34:12 [id number] 2017-04-[address] [facility] [id number] NPI:178 08:00:00 Yoseph [id number] 2019-10-16 2019-10-[id number] [facility] [id number] [facility] St. 06:55:00 14:30:00 Surgical Lam [id number]. [facility] [id number] [facility] St. 1.2 Jabari Elizondo) 2019-10-16 2019-10-16 [id number] NPI:194 13:30:00 13:30:00 Lam [id number] 2019-10-14 2019-10-14 Outpatient JAMES Bass [facility] [id number] NPI:194 13:30:00 13:30:00 Lam [id number] 2019-10-14 2019-10-[id number] [facility] [facility] [id number] [facility] St. 07:45:00 07:46:00 Clinical Lam Johnston.[id number]. [facility] [id number] [facility] St. 1.2 Jabari Elizondo) 2019-08-13 2019-08-13 [facility] [id number] NPI:194 11:00:00 11:00:00 Lam [id number] 2019-03-18 2019-03-18 Outpatient Ritchie AlvaradoLam [facility] [id number] NPI:194 09:49:00 09:50:00 -[id number] 2019-01-31 2019-02-25 Outpatient R MELISA Nava BENNETT [id number] NPI:178 08:00:00 23:59:00 [id number] 2019-01-25 2019-01-26 Outpatient R MELISA Nava [id number] NPI:178 10:00:00 23:59:00 Sameer [id number] 2017-06-01 2017-06-28 Outpatient R MELISA Bustillos BENNETT [id number] NPI:178 11:00:00 23:59:00 [id number] 2017-05-25 2017-05-28 Outpatient R MELISA Bustillos BENNETT [id number] NPI:178 11:00:00 23:59:00 Yoseph -[id number] 2017 2017 Emergency ER JAMES Damon [facility] [id number] NPI:194 12:37:00 15:15:00 [id number] Results Test Description Test Time Test Comments Results Result Comments Source Reference Lab Testing 2019-10-15 11:53:00 Test Item Value Reference Range Interpretation Comme nts Reference Lab Testing Not Detected NotDetected Negati ve (Not Detected) results (test code = [id number]) do no t preclude infectionwith SARS-CoV-2 viru [...] high complexity test s. Comment ER 10/15Laboratory [id number] 14:35:00Coronavirus (COVID-19)(PCR) [facility] ([place])[id number] 14:35:00 Test Item Value Reference Range Interpretation [...] Imaging Center Pt Name: ABEBA NICOLE [address] [facility]. Phys: [place] [address] : 1950 Age: 69 SEX:F [phone] Exam Date: 08/13/19 Status: REG CLI Acct: [id number] Loc: BICCT Pt Unit #: [id number] Report #: [id number] CC: Lam Bass MD CAT SCAN REPORT Order # Category/Exam [id number] CT/CT Lumbar Spine WO Con ([id number]): . Results Exam: CT lumbar spine without [...] Date/Time: 08/13/19 1157 Transcribed Date/Time:MRI Lumbar Spine [facility] Pt Name: ABEBA NICOLE [address] [facility]. Phys: [place] [address] : 1950 Age: 69 SEX:F [phone] Exam Date: 03/18/19 Status: REG CLI Acct: [id number] Loc: BICI Pt Unit #: [id number] Report #: [id number] CC: Lam Alvarado NP OUT OF TOWN PHYSICIAN MRI REPORT Order # Category/Exam [id number] MRI/MRI Lumbar Spine WO Con ([id number]): . Results MRI LUMBAR SPINE NONCONTRAST: HISTORY: Compression fracture of the lumbar vertebrae. Low back pain for many years. COMPARISON: Lumbar spine MRI [facility] is not available for comparison at this [...]
[2021-10-04 09:52] LABS: Absolute Lymphocytes (CBC) 3.3 K/uL (0.7-4.9); Hematocrit 33.6 % (36.0-45.0); Lymphocytes % 25.9 % (15.3-44.8); MPV 7.7 fL (7.6-11.3); Protime INR 0.85; RBC Red Blood Cell Count 3.95 M/uL (3.86-4.86)
[2021-10-04 10:09] LABS: ALT/SGPT 37 U/L (12-78); AST/SGOT 29 U/L (15-37); Albumin 3.8 g/dL (3.4-5.0); Alkaline Phosphatase 135 U/L (45-117); BUN Blood Urea Nitrogen 22 mg/dL (7-18); Bicarbonate 22 mmol/L (21-32); Bilirubin Total 0.3 mg/dL (0.2-1.0); Glucose Level 92 mg/dL (74-106); Magnesium 2.1 mg/dL (1.8-2.4); NT PRO-BNP 141 pg/mL (<125); Potassium 4.7 mmol/L (3.5-5.1); Protein, Total 7.6 g/dL (6.4-8.2); Sodium Level 138 mmol/L (136-145); Troponin High Sensitivity 5.2 pg/mL (<58.9)
[2021-10-04 10:20] LABS: Bilirubin Direct < 0.1 mg/dL (0-0.2)
[2021-10-04 10:32] LABS: Urine Blood Negative (Negative); Urine Glucose Negative (Negative); Urine Protein Negative (Negative); Urine Specific Gravity 1.015 (1.005-1.030)
--- NOTE | 2021-10-04 11:37 | RAD REPORT ---
EXAM DESCRIPTION: RAD - Chest Single View - 10/04/2021 11:30 am CLINICAL HISTORY: weakness, dizziness COMPARISON: Chest Pa And Lat (2 Views) dated 08/05/2021 FINDINGS: Lines: None. Lungs: No evidence of edema or pneumonia. Pleural: No significant pleural effusions or pneumothorax. Cardiac: The heart size is within normal limits. Bones: No acute fractures. Other: IMPRESSION: No acute cardiopulmonary disease.
--- NOTE | 2021-10-04 12:33 | RAD REPORT ---
EXAM DESCRIPTION: CT - Head Brain Wo Cont - 10/04/2021 12:28 pm CLINICAL HISTORY: dizziness COMPARISON: <Comparisons> TECHNIQUE: All CT scans are performed using dose optimization technique as appropriate and may inclu de automated exposure control or mA/KV adjustment according to patient size. FINDINGS: Age indeterminate small left posterior frontal lobe infarct. No acute large vascular alvarez tory infarct is seen.No areas of brain edema or evidence of midline shift. No acute intracranial hemo rrhage. The paranasal sinuses and mastoids are clear. The calvarium is intact. IMPRESSION: Small left posterior frontal lobe infarct is age indeterminate.
--- NOTE | 2021-10-04 12:35 | RAD REPORT ---
EXAM DESCRIPTION: CT - Head angio - 10/04/2021 12:28 pm CLINICAL HISTORY: Dizziness, non-specific Headache, drowsiness COMPARISON: Head Brain Wo Cont dated 10/04/2021; Neck Angio dated 10/04/2021 TECHNIQUE: CT angiography of the head was performed with MIPs. All CT scans are performed using dose optimization technique as appropriate and may include automated exposure control or mA/KV adjustment according to patient size. FINDINGS: No evidence of aneurysm is detected. No flow-limiting stenosis or vascular malformation id entified. Antegrade flow is seen in the vertebral arteries. The left vertebral artery is mildly dominant. The visualized dural venous sinuses are patent. IMPRESSION: No significant flow abnormality is detected.
--- NOTE | 2021-10-04 12:35 | RAD REPORT ---
EXAM DESCRIPTION: CT - Neck Angio - 10/04/2021 12:28 pm CLINICAL HISTORY: Dizziness, non-specific COMPARISON: Head angio dated 10/04/2021No comparisons TECHNIQUE: CT angiography of the neck vessels was performed with MIPs. All CT scans are performed using dose optimization technique as appropriate and may include automated exposure control or mA/KV adjustment according to patient size. FINDINGS: A left aortic arch is identified with normal three vessel configuration of the great vesse ls. No significant flow abnormality is seen of the common carotid bilaterally. No significant stenosis is identified involving the cervical segments of both internal carotid arteri es. Normal flow is seen within both vertebral arteries. Left dominant vertebral artery. Medially deviated carotid arteries. Mild calcified plaque at the bifurcations. Multilevel degenerativ e changes are present in the spine. IMPRESSION: No significant flow abnormality of the neck vessels is identified.
--- NOTE | 2021-10-04 16:54 | RAD REPORT ---
EXAM DESCRIPTION: MRI - Brain Wo Cont - 10/04/2021 4:32 pm CLINICAL HISTORY: Dizziness, non-specific Headache, drowsiness COMPARISON: Head Brain Wo Cont dated 10/04/2021 TECHNIQUE: Multi-sequence, multiplanar MR imaging of the brain was performed without contrast. 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 Minimal chronic microvascular ischemic changes in the periventricular white m atter. No edema or shift of midline structures. No findings to suspect brain mass. DWI is negative fo r acute CVA. Midline structures are normally formed. Mastoid air cells and paranasal sinuses are clear. IMPRESSION: Negative for acute CVA or other acute intracranial abnormality.
--- NOTE | 2021-10-04 17:13 | ER ---
Nurse's Notes [facility] Name: Darlene Carpio Age: 71 yrs Sex: Female : 1950 Arrival Date: 10/04/2021 Time: 08:36 Bed 18 Private MD: Diagnosis: Dizziness and giddiness Presentation: 10/04 09:26 Chief complaint: Patient states: was sent by PCP for high potassium. Coronavirus iw screen: At this time, the client does not indicate any symptoms associated with coronavirus-19. Ebola Screen: Patient negative for fever greater than or equal to 101.5 degrees Fahrenheit, and additional compatible Ebola Virus Disease symptoms Patient denies exposure to infectious person. Patient denies travel to an Ebola-affected area in the 21 days before illness onset. No symptoms or risks identified at this time. Initial Sepsis Screen: Does the patient meet any 2 criteria? No. Patient's initial sepsis screen is negative. Does the patient have a suspected source of infection? No. Patient's initial sepsis screen is negative. Risk Assessment: Do you want to hurt yourself or someone else? Patient reports no desire to harm self or others. 09:26 Method Of Arrival: Ambulatory iw 09:26 Acuity: JESSIE 3 iw 10:29 Onset of symptoms is unknown. garcia Triage Assessment: 11:44 General: Appears in no apparent distress. garcia Historical: - Allergies: 10:28 PENICILLINS; garcia - PMHx: 10:28 Depression; Diabetes - NIDDM; High Cholesterol; GERD; Hypertension; garcia - Immunization history:: Adult Immunizations up to date. - Social history:: Smoking status: Patient denies any tobacco usage or history of. Screenin:28 Abuse screen: Denies threats or abuse. Denies injuries from another. Nutritional garcia screening: No deficits noted. Tuberculosis screening: No symptoms or risk factors identified. Fall Risk None identified. Assessment: 10:27 Reassessment: pt was referred by PCP to ED D/T abnormal labs. General: Appears in no garcia apparent distress. Behavior is calm, cooperative. Pain: Denies pain. Vital Signs: 09:26 BP 128 / 87; Pulse 78; Resp 16; Temp 98.2; Pulse Ox 100% on R/A; iw 11:11 BP 126 / 67; Pulse 78; Resp 18; Pulse Ox 99% on R/A; garcia 12:58 BP 134 / 65; Pulse 80; Resp 17; Pulse Ox 99% on R/A; garcia ED Course: 08:36 Patient arrived in ED. as 09:23 [facility]illo [facility] 09:23 Vernon Harding MD is Attending Physician. [facility] 09:27 Triage completed. iw 10:25 Manju Cuellar, RN is Primary Nurse. garcia 10:28 Patient has correct armband on for positive identification. Bed in low position. garcia 10:28 No provider procedures requiring assistance completed. garcia 10:29 Arm band placed on. garcia 10:48 Placed in gown. Call light in reach. Side rails up X2. Warm blanket given. Cardiac mh5 monitor on. Pulse ox on. NIBP on. 10:49 Initial lab(s) drawn, by ED staff, sent to lab. Urine collected: clean catch specimen, mh5 clear, EKG done, by ED staff, reviewed by Fermin GOMEZ. 11:32 XRAY Chest (1 view) In Process Unspecified. EDMS 11:43 Patient did not have IV access during this emergency room visit. garcia 11:44 Inserted saline lock: 22 gauge in left forearm, using aseptic technique. garcia 12:30 CT Head Brain wo Cont In Process Unspecified. EDMS 12:30 CT Head Angio In Process Unspecified. EDMS 12:30 Neck Angio In Process Unspecified. EDMS 16:33 MRI - Brain Wo Cont In Process Unspecified. EDMS 17:12 Sukhi Hammond MD is Referral Physician. [facility] Administered Medications: No medications were administered Outcome: 17:12 Discharge ordered by . [facility] 17:22 Discharged to home ambulatory. garcia 17:22 Discharge instructions given to patient, Prescriptions given X 1. 17:23 Condition: good garcia 17:23 Patient left the ED. garcia Signatures: Dispatcher [employer] EDMS Fermin Carrillo PA PA jmm Martinez, Amelia as Williams, Irene, LOUISE GIL iw Debra Zelaya [facility] Manju Cuellar, LOUISE RN garcia Corrections: (The following items were deleted from the chart) 11:44 11:43 Discharged to home with friend, garcia garcia 11:44 11:43 Discharge instructions given to patient, Prescriptions given X 2, garcia garcia 11:44 11:43 Condition: good garcia garcia
--- NOTE | 2021-10-04 17:13 | EDPHYS ---
Physician Documentation [facility] [place] Name: Darlene Carpio Age: 71 yrs Sex: Female : 1950 Arrival Date: 10/04/2021 Time: 08:36 Bed 18 Private MD: ED Physician Vernon Harding HPI: 10/04 09:22 This 71 yrs old Female presents to ER via Ambulatory with complaints of Abnormal Lab jmm Results - k. 09:22 The patient presents with dizziness. Onset: The symptoms/episode began/occurred jmm acutely, 4 week(s) ago. Modifying factors: The symptoms are alleviated by nothing, the symptoms are aggravated by nothing. Associated signs and symptoms: Pertinent negatives: abdominal pain, tingling. This is a 71 year old female with a history of dm, hlp, htn that presents to the ED with complaints of dizziness which has been intermittent over the past 3 to 4 weeks. Patient was evaluated by pcp and advised to go to the ER due to elevated k. . Historical: - Allergies: 10:28 PENICILLINS; garcia - PMHx: 10:28 Depression; Diabetes - NIDDM; High Cholesterol; GERD; Hypertension; garcia - Immunization history:: Adult Immunizations up to date. - Social history:: Smoking status: Patient denies any tobacco usage or history of. ROS: 18:56 Constitutional: Negative for fever, chills, and weight loss, Cardiovascular: Negative jmm for chest pain, palpitations, and edema, Respiratory: Negative for shortness of breath, cough, wheezing, and pleuritic chest pain. 18:56 Neuro: Positive for dizziness. 18:56 All other systems are negative. Exam: 18:56 Constitutional: This is a well developed, well nourished patient who is awake, alert, jmm and in no acute distress. Head/Face: atraumatic. Eyes: EOMI, no conjunctival erythema appreciated ENT: Moist Mucus Membranes Neck: Trachea midline, Supple Chest/axilla: Normal chest wall appearance and motion. Cardiovascular: Regular rate and rhythm. No edema appreciated Respiratory: Normal respirations, no respiratory distress appreciated Abdomen/GI: Non distended, soft Back: Normal ROM Skin: General appearance color normal MS/ Extremity: Moves all extremities, no obvious deformities appreciated, no edema noted to the lower extremities Neuro: Awake and alert Psych: Behavior is normal, Mood is normal, Patient is cooperative and pleasant Vital Signs: 09:26 BP 128 / 87; Pulse 78; Resp 16; Temp 98.2; Pulse Ox 100% on R/A; iw 11:11 BP 126 / 67; Pulse 78; Resp 18; Pulse Ox 99% on R/A; garcia 12:58 BP 134 / 65; Pulse 80; Resp 17; Pulse Ox 99% on R/A; garcia MDM: 09:23 Patient medically screened. power 17:12 Data reviewed: vital signs, nurses notes. Counseling: I had a detailed discussion with power the patient and/or guardian regarding: the historical points, exam findings, and any diagnostic results supporting the discharge/admit diagnosis, the need for outpatient follow up, to return to the emergency department if symptoms worsen or persist or if there are any questions or concerns that arise at home. 17:12 ED course: MRI negative. Patient advised to follow up with pcp for further evaluation. power Patient understood and agrees with the plan of care. . 10/04 09:23 Order name: Basic Metabolic Panel; Complete Time: 10:24 [facility] 10/04 09:23 Order name: CBC with Diff; Complete Time: 10:08 [facility] 10/04 09:23 Order name: LFT's; Complete Time: 10:24 [facility] 10/04 09:23 Order name: Magnesium; Complete Time: 10:24 [facility] 10/04 09:23 Order name: NT PRO-BNP; Complete Time: 10:24 [facility] 10/04 09:23 Order name: PT-INR; Complete Time: 10:08 [facility] 10/04 09:23 Order name: Troponin HS; Complete Time: 10:24 [facility] 10/04 09:23 Order name: XRAY Chest (1 view); Complete Time: 11:38 [facility] 10/04 10:26 Order name: CT Head Brain wo Cont; Complete Time: 12:42 [facility] 10/04 10:26 Order name: CT Head Angio; Complete Time: 12:42 [facility] 10/04 10:26 Order name: CT Neck Angio [facility] 10/04 10:33 Order name: Urine Dipstick-Ancillary; Complete Time: 10:38 [facility] 10/04 10:33 Order name: Neck Angio; Complete Time: 12:42 [facility] 10/04 12:43 Order name: MRI - Brain Wo Cont; Complete Time: 17:01 [facility] 10/04 09:23 Order name: EKG; Complete Time: 09:24 [facility] 10/04 09:23 Order name: Cardiac monitoring; Complete Time: 10:47 [facility] 10/04 09:23 Order name: EKG - Nurse/Tech; Complete Time: 10:47 [facility] 10/04 09:23 Order name: IV Saline Lock; Complete Time: 10:59 [facility] 10/04 09:23 Order name: Labs collected and sent; Complete Time: 10:47 [facility] 10/04 09:23 Order name: O2 Per Protocol; Complete Time: 10:47 [facility] 10/04 09:23 Order name: O2 Sat Monitoring; Complete Time: 10:47 [facility] Administered Medications: No medications were administered Disposition Summary: 10/04/21 17:12 Discharge Ordered Location: Home [facility] Condition: Stable [facility] Diagnosis - Dizziness and giddiness [facility] Followup: [facility] - With: Sukhi Hammond MD - When: 2 - 3 days - Reason: Recheck today's complaints, Continuance of care, Re-evaluation by your physician Discharge Instructions: - Discharge Summary Sheet [facility] - Dizziness [facility] Forms: - Medication Reconciliation Form [facility] - Thank You Letter [facility] - Antibiotic Education [facility] - Prescription Opioid Use [facility] Prescriptions: - Meclizine 25 mg Oral Tablet - take 1 tablet by ORAL route every 8 hours As needed; 30 tablet; Refills: 0, [facility] Product Selection Permitted Signatures: Dispatcher [employer] EDDE Fermin Carrillo PA PA [facility] Manju Cuellar RN RN garcia Corrections: (The following items were deleted from the chart) 18:56 09:22 This is a 71 year old female with a history of dm, hlp, htn that presents to the [facility] ED with complaints of dizziness which has been intermittent over the past 3 to 4 weeks. Patient was evaluated. [facility]
[2021-10-04 18:39] VITALS: TEMP 98.2
[2021-10-04 18:44] VITALS: O2SAT 99
[2021-10-04 18:45] VITALS: BP 134/65
--- NOTE | 2021-10-05 10:21 | EKG ---
Test Date: 2021-10-04 Test Time: 10:39:50 Fire Prevention Inspector: BALBINA MEASUREMENT RESULTS: Intervals: Rate: 82 MS: 130 QRSD: 72 QT: 366 QTc: 427 [place]: P: 43 MS: 130 QRS: 34 T: 35 INTERPRETIVE STATEMENTS: Normal sinus rhythm Normal ECG No previous ECG available for comparison Electronically Signed On 10-05-21 10:17:46 CDT by Howard Willett
== END 2021-10-04 17:23 | disposition home or self-care (01) ==
LOC: ER 08:33
DX: R42 Dizziness and giddiness (principal); E11.9 Type 2 diabetes mellitus without complications; I10 Essential (primary) hypertension; Z88.0 Allergy status to penicillin
CPT/HCPCS: 93005; 85025; 80048; 36415; 83735; 85610; 80076; 81003; 84484; 83880; 70450; 70496; 70498; 71045; 70551; Q9967; 99284

== ENCOUNTER 2023-01-26 09:16 | Emergency (ER) | payer OTHER ==
--- OUTSIDE RECORDS SUMMARY | 2023-01-26 09:20 | XMS REPORT | Continuity of Care Document ---
:[address] [facility] t Address [address] [facility] [address] [place] [address] Care Team Providers Name Role Phone NETO HERNANDEZANTHA Primary Care Physician Unavailable Yoseph Bustillos Attending Clinician Unavailable Giulia Tapia NP Attending Clinician Paul Sanchez MD Attending Clinician PAUL SANCHEZ Attending Clinician Unavailable Lam Bass Attending Clinician Unavailable Lam Alvarado Attending Clinician Unavailable Sameer Nava Attending Clinician Unavailable Melyssa Damon PA-C Attending Clinician Unavailable PROVIDER, ED TEM Attending Clinician Unavailable GIULIA TAPIA Admitting Clinician Unavailable Payers Payer Name Policy Type Policy Number Effective Date Expiration Date S ource Problems Condition Condition Condition Status Onset Resolution Last Treating Co mments Source Name Details Category Date Date Treatment Clinician Date Problem No known ASSERTION [facility] problems [facility] ([place]) Allergies, Adverse Reactions, Alerts Allergy Allergy Status Severity Reaction(s) Onset Inactive Treating Comm ents Source Name Type Date Date Clinician Penicill Propensi Active Swelling Univ ers in ty to 8-24 ity of adverse 00:00: [place] reaction 00 Medical s Branch PENICILL DRUG Active Swelling Univer s IN INGREDI 8-24 ity of 00:00: [place] 00 Medical Branch Penicill DA [facility] 00 [facility] cristobal Penicill Allergy Active 2019- [facility] - Substanc 00:00: St. e 00 Jabari ([place]) NO KNOWN Drug Active [facility] ALLERGIE Class ity of S [facility] Social History Social Habit Start Date Stop Date Quantity Comments Source Gender identity [facility] Sex Assigned At [birth year] [facility]00 Medical Branch Smoking Status Start Date Stop Date Source Tobacco smoking consumption Univ [facility] unknown Branch Medications Ordered Filled Start Stop Current Ordering Indication Dosage Frequency Signature Comments Components Source Medication Medication Date Date Medication? Clinician (SIG) Name Name cetirizine Yes 5mg 5 mg, Univer s (ZYRTEC) 01-20 Oral, ity of tablet 5 mg 14:00: [place] First dose Medical on Mon Branch 01/20/23 at 0900, Until Discontinu ed, Routine ipratropium 0 Yes 3mL 3 mL, Unive rs -albuteroL 01-20 Inhalation ity of (DUONEB) 01:00: , QID, [place] 0.5 mg-3 00 First dose Medic al mg(2.5 mg on [facility] base)/3 mL 01/19/23 at nebulizer 1999, solution 3 Until mL Discontinu ed, Routine KCL 2022- No 20meq 20 mEq, Univers (KLOR-CON 01-20 Oral, ity of M20) tablet 01:00: 01:23 [place] 20 mEq 00 :00 dose, On Medical [facility] Branch 01/19/23 at 2000, EILEEN methylPREDN 2022- No 125mg 125 mg, U nivers ISolone 01-20 Intravenou ity o f sodium 00:45: 00:45 s, ONCE, [place] succinate 00 :00 dose, On Medica l (SOLU-MEDRO [facility] Branch L) 01/19/23 at injection 1945, 125 mg Routine ipratropium 2022- No 9mL 9 mL, Univ ers -albuteroL 01-20- Inhalation it y of (DUONEB) 00:45: 23:58 , ONCE [place] 0.5 mg-3 00 :00 NOW, 1 Medical mg(2.5 mg dose, On Branch base)/3 mL Ross[place] nebulizer 01/19/23 at solution 9 1945, mL Routine methylPREDN Yes [id number] Take by [facility] ISolone 4 8-24 mouth ity of mg tablets 00:00: SEE-INSTRU [place] 00 CTIONS. Medical follow Branch package directions fluticasone Yes [id number] 1{puff} Inhale 1 Univers propion-glen 8-24 Puff in ity o f meteroL 00:00: the [place] (ADVAIR 00 morning Medical DISKUS) and 1 Puff Branch 250-50 in the mcg/dose evening. inhalation disk Meloxicam 2019-0 No General 15MG Daily [facility] [address] [place] Metformin 2019-0 No General 500MG Twice [facility] 5[facility]18 [facility] Daily [facility] - 00[facility] Hospital [address] [place] Omeprazole 2019-0 No General 20MG Bedtime C HI [facility] 5-18 [facility] Care [facility] - 00:[facility]: Hospital [address] [place] Atorvastati 2019-0 No General 40MG Bedtime [facility] Calcium 5-18 Acute Care Luke s - 00:00: Hospital [address] [place] Bupropion 2019-0 No General 300MG Daily [facility] 5[facility]18 [facility] - 00:[facility]: Hospital [address] [place] Fluoxetine 2019-0 No General 20MG Daily [facility] 5-18 [facility] Care [facility] - 00:00: Hospital [address] [place] Hydrocodone 2020-0 No General 1TAB As Needed [facility] /Acetaminop 5-18 Acute Care PRN For [facility] - hen 00:00: Hospital Pain [address] [place] Levothyroxi 2020-0 No General 50MCG Daily C HI [facility] ne Sodium 5-18 Acute Care Luke s - 00:00: Hospital [address] [place] Lisinopril 2020-0 No General 2.5MG Bedtime [facility]18 [facility] - 00:[facility]: Hospital [address] Mikhail) Meloxicam 2020-0 No General 15MG Daily [facility] - 00[facility] Hospital St. [address] [place] [address] Mikhail) Metformin 2020-0 No General 500MG Twice [facility] 5-18 Acute Care Daily [facility] - 00:[facility] Hospital [address] Mikhail) Omeprazole 2020-0 No General 20MG Bedtime C HI [facility] 5-18 Acute Care [facility] - 00:00: Hospital [address] Mikhail) Atorvastati 2020-0 No General 40MG Bedtime [facility] n Calcium 5-18 Acute Care Luke s - 00:00: Hospital [address] Mikhail) Bupropion 2020-0 No General 300MG Daily [facility] 5[facility]18 [facility] Care [facility] - 00:00: Hospital [address] Mikhail) Fluoxetine 2020-0 No General 20MG Daily [facility] 5-18 Acute Care [facility] - 00:00: Hospital [address] [place] Hydrocodone 2020-0 No General 1TAB As Needed [facility] /Acetaminop 5-18 Acute Care PRN For [facility] - hen 00:00: Hospital Pain [address] Mikhail) Levothyroxi 2020-0 No General 50MCG Daily C HI [facility] ne Sodium 5-18 Acute Care Luke s - 00:00: Hospital [address] [place] Lisinopril 2020-0 No General 2.5MG Bedtime [facility]18 [facility] - 00:00: Hospital [address] [place] Vital Signs Vital Name Observation Time Observation Value Comments Source Systolic blood 2023-01-20 00:03:09 131 mm[Hg] Univer sity of pressure [facility] Diastolic blood 2023-01-20 00:03:09 101 mm[Hg] Unive rsity of pressure [facility] Body temperature 2023-01-20 00:03:09 36.94 Selena [facility] Respiratory rate 2023-01-20 00:03:09 20 /min [facility] Heart rate 2023-01-20 00:00:00 125 /min [facility] Oxygen saturation in 2023-01-20 00:00:00 98 /min [facility] blood by [facility] [place] Pulse oximetry Branch Body weight 2023-01-19 23:14:00 77.111 kg [facility] WEIGHT 2021-04-02 16:03:39 80.137560 kg HEIGHT 2021-04-02 16:03:39 154.94 cm WEIGHT 2021-04-02 15:59:13 80.895285 kg HEIGHT 2021-04-02 15:59:13 154.94 cm WEIGHT 2021-04-02 15:55:41 80.562123 kg HEIGHT 2021-04-02 15:55:41 154.94 cm WEIGHT 2021-04-02 15:53:11 80.257081 kg HEIGHT 2021-04-02 15:53:11 154.94 cm Body Temperature 2021-03-31 10:48:[address] [facility] ([place] [facility] Heart Rate 2021-03-31 10:48:[address] [facility] ([place]hay an) Respiratory Rate 2021-03-31 10:48:[address] [facility] (Abhay an) O2 % BldC Oximetry 2021-03-31 10:48:[address] [facility] BP Systolic 2021-03-31 10:48:[address] [facility] ([place] an) BP Diastolic 2021-03-31 10:48:[address] [facility] ([place]hay an) Height 2019-10-14 13:48:[address] [facility] ([facility] an[facility] Weight Measured 2019-10-14 13:48:00 80.73 kg [facility] BMI (Body Mass 2019-10-14 13:48:00 33.6 kg/m2 [facility] [place] (Abhay an) Procedures Procedure Date / Time Performed Performing Clinician Sour e AC PANEL 21 + LACTIC 2023-01-20 00:28:00 Giulia Tapia [facility] TROPONIN I 2023-01-19 23:42:00 Giulia Tapia [place] [facility] COMP. METABOLIC PANEL 2023-01-19 23:42:00 Giulia Tapia [facility] ([id number]) Medical Branch CBC WITH DIFF 2023-01-19 23:42:00 [facility] N-TERMINAL PRO-BNP 2023-01-19 23:42:00 Giulia Tapia [facility] CONSENT/REFUSAL FOR 2023-01-19 23:02:18 Doctor Unassigned, No [facility] DIAGNOSIS AND Name Medical Branch TREATMENT NOTICE OF PRIVACY 2023-01-19 23:01:45 Doctor Unassigned, No Univ [facility] PRACTICES Name [facility] Branch XR Fluoro Per Hour 2019-10-16 00:00:[address] [facility] EKG 12 Lead 2019-10-14 00:00:[address] [facility] [place] [facility] Encounters Start End Encounter Admission Attending Care Care Encounter Source Date/Time Date/Time Type Type Clinicians Facility Department ID 2022-10-31 Outpatient STLMLC STLMLC [id number] Common 08:36:00 [id number] [facility] 2022-07-25 Outpatient STLMLC STLMLC [id number] Common 10:17:01 [id number] [facility] 2022-07-19 Outpatient STLMLC STLMLC [id number] Common 08:14:01 [facility] 2021-11-16 Outpatient STLMLC STLMLC [id number] Common 12:52:01 [facility] 2021-09-13 Outpatient STLMLC STLMLC [id number] Common 10:27:03 [facility] 2021-06-23 Outpatient STLMLC STLMLC [id number] Common 14:34:12 [facility] 2017-04-25 Inpatient MELISA Martinez STLSJZack [id number] [facility] St 08:00:00 Yoseph -[id number] [facility] 2023-01-19 2023-01-19 Emergency Giulia Tapia [facility] [id number]. [id number] [facility] 18:16:00 20:37:00 Paul Sanchez [id number] [facility] [id number] [facility] [id number] [place] [address] Branch 2023-01-19 2023-01-19 Emergency X LEXA [facility] ERT [id number] Univers 18:16:00 20:37:00 PAUL itchristine [facility] 2019-10-16 2019-10-16 Departed Ritchie Bass, 2.16.840. [facility] J000 [id number] [facility] 06:55:00 14:30:00 Surgical Lam [id number]. Regional 42 [facility] 3.4991.3. [facility] St. 1.2 Jabari Elizondo) 2019-10-16 2019-10-16 Outpatient Shelia [facility] [id number] 13:30:00 13:30:00 Lam -[id number] Julian Revees 2019-10-14 2019-10-14 Outpatient Shelia [facility] [id number] 13:30:00 13:30:00 Lam -[id number] Julian Reeves 2019-10-14 2019-10-14 Departed Ritchie Bass, 2.16.840. [facility] J000 [id number] [facility] 07:45:00 07:46:00 Clinical Lam Johnston.[id number]. Regional [address] [facility] 3.4991.3. [facility] St. 1.2 Jabari Elizondo) 2019-08-13 2019-08-13 Outpatient Shelia [facility] [id number] 11:00:00 11:00:00 Lam -[id number] Julian Reeves 2019-03-18 2019-03-18 Outpatient Lam Campbell [facility] M00 [id number] [facility] 09:49:00 09:50:00 -[id number] Julian Reeves 2019-01-31 2019-02-25 Outpatient R MELISA Nava [facility] [id number] 08:00:00 23:59:00 Erskine -[id number] Julian Mendez [facility] 2019-01-25 2019-01-26 Outpatient MELISA Lomas STLS [id number] 10:00:00 23:59:00 [id number] Julian Torres 2017-06-01 2017-06-28 Outpatient MELISA Martinez STBENNETT [id number] 11:00:00 23:59:00 [id number] Julian Torres 2017-05-25 2017-05-28 Outpatient MELISA Martinez STBENNETT [id number] 11:00:00 23:59:00 [id number] Julian Torres 2017 2017 [id number] 12:37:00 15:15:00 Melyssa -[id number] Tyroneviv Reeves Results Test Description Test Time Test Comments Results Result Comments Source TROPONIN I 2023-01-20 01:13:38 Test Item Value Reference Range Interpretation Comme nts TROPONIN I (test code = 9109551955) 0.006 ng/mL <=0.034 MADELEINE (test code = MADELEINE) Reference (Normal) Range (defined by the 99th percentile reference limit): <= 0.034 ng/mL Note: Cardiac troponin begins to rise 3-4 hours after the onset of ischemia. Repeat in 4-6 hours if the sample was drawn within 3-4 hours of the onset of the symptom and found normal. Diagnosis of myocardial injury is made with acute changes in cTn concentrations with at least one serial sample above the 99th percentile upper reference limit (URL), taken together with the patient's clinical presentation. Biotin has been reported to cause a negative bias, interpret results relative to patient's use of biotin. Lab Interpretation (test code = Normal 54053-3) [facility] [id number] 01:11:01 Test Item Value Reference Range Interpretation Comments NT-proBNP (test code = 32617-8) 94 pg/mL <=125 Lab Interpretation (test code = Normal 15193-8) [facility] [place] [place]OLIC PANEL (33532)2023-01-20 01:02:17 Test Item Value Reference Range Interpretation Comments NA (test code = 144 mmol/L 135-145 3164399785) K (test code = 3.9 mmol/L 3.5-5.0 1819352966) CL (test code = 113 mmol/L 98-108 H 1172380027) CO2 TOTAL (test code = 22 mmol/L 23-31 L 2025568689) AGAP (test code = 9 2-16 5325688398) BUN (test code = 25 mg/dL 7-23 H 9263470013) GLUCOSE (test code = 116 mg/dL 70-110 H 0824495282) CREATININE (test code = 1.01 mg/dL 0.50-1.04 2601970409) TOTAL BILI (test code = 0.4 mg/dL 0.1-1.7 4046568007) CALCIUM (test code = 9.6 mg/dL 8.6-10.6 2059481887) T PROTEIN (test code = 7.6 g/dL 6.3-8.2 8972111614) ALBUMIN (test code = 4.4 g/dL 3.5-5.0 1440281983) ALK PHOS (test code = 114 U/L 34-122 2432361663) ALTv (test code = 46 U/L 5-35 H 1742-6) AST(SGOT) (test code = 56 U/L 13-40 H 5916613300) eGFR (test code = 53.9 mL/min/1.73m2 0105932375) MADELEINE (test code = MADELEINE) Association of Glomerular Filtration Rate (GFR) and Staging of Kidney Disease* + --+ --+ ------+| GFR (mL/min/1.73 m2) ?| With Kidney Damage ?| ?Without Kidney Damage+ --------+ --------+ +| ?>90 ?| ?Stage one ?| ? Normal ?+ ---+ ---+ -------+| ?60-89 ?| ?Stage two ?| ? Decreased GFR ? + --+ --+ ------+| ?30-59 ?| ?Stage three ?| ? Stage three ? + --+ --+ ------+| ?15-29 ?| ?Stage four ? | ? Stage four ?+ ---+ ---+ -------+| ?<15 (or dialysis) ? ?| ?Stage five ? | ? Stage five ?+ ---+ ---+ -------+ *Each stage assumes the associated GFR level has been in effect for at least three months. ?Stages 1 to 5, with or without kidney disease, indicate chronic kidney disease. Notes: Determination of stages one and two (with eGFR >59mL/min/1.73 m2) requires estimation of kidney damage for at least three months as defined by structural or functional abnormalities of the kidney, manifested by either:Pathological abnormalities or Markers of kidney damage (including abnormalities in the composition of the blood or urine or abnormalities in imaging tests). Lab Interpretation Abnormal (test code = 87072-6) [facility] 21 + LACTIC [id number] 00:39:17 Test Item Value Reference Range Interpretation Comments PH (test code = 7.33 7.32-7.42 3241543727) PCO2 MUSTAPHA (test code = 33 See_Comment L [Auto mated 0996554241) message] The sy stem which generated this result transmitted reference range : 41 - 51 mmHg. The reference range was not used to interpret this result as normal/abnormal . PO2 MUSTAPHA (test code = 116 See_Comment HH [Autom ated 4501951403) message] The sy stem which generated this result transmitted reference range : 25 - 40 mmHg. The reference range was not used to interpret this result as normal/abnormal . HCO3 MUSTAPHA (test code = 17 See_Comment L [Auto mated 0588351827) message] The sy stem which generated this result transmitted reference range : 24 - 28 mEq/L. The reference range was not used to interpret this result as normal/abnormal . AC VBE(BEAKER) (test -8.0 mEq/L code = 3366668846) THB MUSTAPHA (test code = 12.9 g/dL 12.0-16.0 4932436471) %O2HB MUSTAPHA (test code = 95.7 % 52.0-63.0 H 2067842515) %COHB MUSTAPHA (test code = 2.1 % 0.0-1.5 H 1429994558) %METHB MUSTAPHA (test code = 0.0 % 0.4-1.5 L 5327009635) VOL%O2 MUSTAPHA (test code = 17.5 % 6.0-12.0 H 8785041265) NA (test code = 142 mmol/L 135-145 4168814126) K+ (test code = 3.2 mmol/L 3.5-5.0 L 5670418331) AC CA IONZ (test code = 4.50 mg/dL 4.50-5.30 2660200842) GLUCOSE (test code = 145 mg/dL 70-110 H 0330273005) LACTIC ACID (test code 1.64 mmol/L 0.50-2.20 = 8360719853) Lab Interpretation Abnormal (test code = 39755-9) [facility] WITH [id number] 00:24:32 Test Item Value Reference Range Interpretation Comments WBC (test code = 14.10 See_Comment H [Automated 9978-2) message] The sy stem which generated this result transmitted reference range : 4.30 - 11.10 10*3/?L. The reference range was not used to interpret this result as normal/abnormal . RBC (test code = 4.30 See_Comment [Automated 042-8) message] The sy stem which generated this result transmitted reference range : 3.93 - 5.25 10*6/?L. The reference range was not used to interpret this result as normal/abnormal . HGB (test code = 13.5 g/dL 11.6-15.0 718-7) HCT (test code = 40.3 % 35.7-45.2 4544-3) MCV (test code = 93.7 fL 80.6-95.5 787-2) MCH (test code = 31.4 pg 25.9-32.8 785-6) MCHC (test code = 33.5 g/dL 31.6-35.1 786-4) RDW-SD (test code = 46.5 fL 39.0-49.9 32364-5) RDW-CV (test code = 13.7 % 12.0-15.5 788-0) PLT (test code = 314 See_Comment [Automated 687-3) message] The sy stem which generated this result transmitted reference range : 166 - 358 10*3/ ?L. The reference r lizbeth was not used to interpret this result as normal/abnormal . MPV (test code = 10.8 fL 9.5-12.9 80475-4) NRBC/100 WBC (test 0.0 See_Comment [Automat ed code = 4066001168) message] The system which generated this result transmitted reference range : 0.0 - 10.0 /100 WBCs. The refer ence range was not u sed to interpret th is result as normal/abnormal . NRBC x10^3 (test code See_Comment [Auto mated = 5938155353) message] The s ystem which generated this result transmitted reference range : 10*3/?L. The reference range was not used to interpret this result as normal/abnormal . GRAN MAT (NEUT) % 70.3 % (test code = 770-8) IMM GRAN % (test code 0.30 % = 3147748375) LYMPH % (test code = 23.8 % 736-9) MONO % (test code = 5.2 % 5905-5) EOS % (test code = 0.0 % 713-8) BASO % (test code = 0.4 % 706-2) GRAN MAT x10^3(ANC) 9.91 10*3/uL 1.88-7.09 H (test code = 1451827122) IMM GRAN x10^3 (test 0.04 10*3/uL 0.00-0.06 code = 9143095947) LYMPH x10^3 (test code 3.36 10*3/uL 1.32-3.29 H = 731-0) MONO x10^3 (test code 0.73 10*3/uL 0.33-0.92 = 742-7) EOS x10^3 (test code = 0.03-0.39 L 711-2) BASO x10^3 (test code 0.06 10*3/uL 0.01-0.07 = 704-7) Lab Interpretation Abnormal (test code = 96898-0) [facility] [id number] 11:53:00 Test Item Value Reference Range Interpretation Comments Reference Lab Not Detected NotDetected Negative (Not Detected) Testing (test results do not preclude code = ZKKRJ79A) infectionwi th SARS-CoV-2 virus, and shou ld not be the sole basis of apatient manage ment decision. Consi shania testing for oth erviruses if clinically indicated.The u se of this assay as an In vitro diagnostic unde r theFDA Emergency Use Authorization ( EUA) is limited tolabor atories that are certif ied under the ClinicalLab oratory Improvement Vera ndments of 1987 (CLIA), 42 U.S.C.263a, to perform high complexity tests. Comment ER 10/15Laboratory [id number] 14:35:00Coronavirus (COVID-19)(PCR) [facility][id number] 14:35:00 Test Item Value Reference Range Interpretation [...] UACAST) Urine Source: Urine VoidedCT Lumbar Spine [facility]Diagnostic [facility] Center Pt Name: COREYABEBA GONSALO [address] [facility]. Phys: [place] [address] : 1950 Age: 69 SEX:F [phone] Exam Date: 08/13/19 Status: REG CLI Acct: [id number] Loc: BICCT Pt Unit #: [id number] Report #: [id number] CC: Lam Bass MD CAT SCAN REPORT Order # Category/Exam [id number] CT/CT Lumbar Spine WO Con ([id number]): . Results Exam: CT lumbar spine without contrast HISTORY: Low back pain. Bilateral lower extremity radiculopathy. Comparison none FINDINGS: No paraspinal mass, lymphadenopathy or hematoma. Atherosclerosis of a nonaneurysmal aorta Visualized alimentary canal is unremarkable. Nonobstructing calcification in the right renal pelvis. 5 lumbar type vertebra. Lumbar spine vertebral body height is maintained. There is no fracture.No spondylolisthesis. No spondylolysis Vacuum joint phenomenon in both SI joints. Sacral ala are preserved. Sacral neural foramina are also unremarkable. There is appropriate fat attenuation in left and right neural foramina at S1, S2 and S3. There is no presacral fat stranding. Technique limits evaluation of the contents of the central spinal canal and neural foramina T12- L1: No significant central canal stenosis or significant neural foraminal narrowing L1-L2: No significant central canal stenosisor significant neural foraminal narrowing L2-L3: Moderate loss [...] detailed above. 2. No evidence of fracture. 12:02 PM Reported By: Jacqui Kim MD Electronically Signed Date/Time: 08/13/19 1202 Technologist: NICHOL PEREZ Dictated Date/Time: 08/13/19 1157 Transcribed Date/Time:MRI Lumbar Spine WO ConDiagnostic Imaging Center Pt Name: COREYABEBA BRUSH [address] [facility]. Phys: Lam Alvarado UPHOLSTERER HELPER [place] [address] : 1950 Age: 69 SEX:F [phone] Exam Date: 03/18/19 Status: REG CLI Acct: [id number] Loc: BICMRI Pt Unit #: [id number] Report #: [id number] CC: Lam Alvarado UPHOLSTERER HELPER OUT OF TOWN PHYSICIAN MRI REPORT Order # Category/Exam [id number] MRI/MRI Lumbar Spine WO Con ([id number]): . Results MRI LUMBAR SPINE NONCONTRAST: HISTORY: Compression fracture of the lumbar vertebrae. Low back painfor many years. COMPARISON: Lumbar spine MRI [facility] is not available for comparison at this time. FINDINGS: Slightly heterogeneous marrow signal intensity of the lumbar vertebra likely representing senescent change. Lumbar spine vertebral body height is maintained. There is no fracture. No significant STIR hyperintensity to suggest vertebral body edema or ligamentous injury. Maria Elena ropriate signal intensity of the paraspinal muscles. Appropriate [...] stenosis. Mild to moderate right neural foraminal narrowing.Mild left neural foraminal narrowing. L3-L4:Desiccation with moderate to severe loss of disc space height. Broad-based disc bulge, ligament flavum thickening and facet hypertrophy result in moderate central canal stenosis. Mild to moderate bilateral neural foraminal narrowing. L4- L5:Desiccation without significant loss of disc space height. Broad-based disc bulge, ligament flavum thickening and facethypertrophy result in mild central canal stenosis. Mild [...] RANDI Dictated Date/Time: 03/18/19 1133 Transcribed Date/Time: Notes Date/Time Note Provider Source 2023-01-19 18:13:23-00:00 Formatting of this note migh t be different from the original. [facility] Patient presents to triage w anoop nephew. Patient with audible wheezing and is diaphoretic. HR at triage 138. Patient unable to speak in complete sentence. Hx of COPD, and current smoker. Electronically signed by Mala Lopez RN at 6:14 PM CDT 2019-10-16 16:06:00-00:00 [facility] Name: COREYABEBA James [place] [address] [email or web address] [facility] : 1950, Age: 69, Sex: VARUN [place] [phone] Unit #: [id number], Status: [facility] [phone] Location: [facility] Dictated by: Lam Bass MD Admission Date: Report #: [id number] Discharge Date: 10/16/19 CC: Mark Del Cid MD, James Bradley MD OPERATIVE NOTE DATE OF PROCEDURE: 10/16/2019 PICC NURSE: Omkar Moran PA-C INDICATION: Axial back pain. PROCEDURE: Posterior element resection of spino us process of L4. ANESTHESIA: General. DESCRIPTION OF PROCEDURE: The patient w as brought into the operating room and placed under general anesth esia. She was flipped from the supine to prone position on the operating room table . A linear incision was planned over the spinous process of L4. After prepping and d raping and after an appropriate preoperative pause, the incision was created. The soft tissues were swe pt away from midline. A self-retaining retractor wa s placed. A C-arm image was obtained and confirmed the appropriate level with C-ar m fluoroscopy. After confirming the appropriate level, an Adson rongeur was used t o remove the spinous process of L4 down to the level of the lamina. The wound was t hen irrigated. Hemostasis was maintained throughout. The wound was then closed i n anatomic layers and a pressure dressing was applied. There were no known procedural complications. Job ID: [id number] Dictated by: Lam Bass MD <Electronically signed by Lam Bass MD> 10/18/19 0815 K Dictated Date/Time: 10/16/19 1009 Transcribed Date/Time: 10/16/19 1602 Hydrostatic Tubing Tester: [email or web address] 2019-10-15 13:16:00-00:00 [facility] Name: ABEBA NICOLE Omkar Moran [facility] Memeo : 1950, Age: 69, Sex: VARUN [place] [id number] Unit #: [id number], Status: [facility] [phone] Location: [facility] Dictated by: Omkar Moran Admission Date: Report #: [id number] Discharge Date: 10/16/19 CC: Mark Del Cid MD, Jonathan PA White, James Bradley MD HISTORY AND PHYSICAL REPORT HISTORY OF PRESENT ILLNESS: Ms. Nicole is a pleasant 69-year-old woman, presenting to our office for evaluation o f significant lower back pain over the last 2 years, which has gradually been in tensifying her pain when walking, will spread somewhat into the bilateral buttock, but really does not have any significant radicular pain. She has had lumbar spine in jections, which feel did not help her in the past. Pain is worsened with pressure o n her back and when bending backwards as well as when walking. Pain improves in s itting, leaning forward. MRI from [place] reveals lswl-wd-insugupw lateral re cess stenosis in several areas, most significant at L4. However, again she has no significant radicular pain. 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 PHYSICAL EXAMINATION: NEUROLOGIC: The patient is alert and oriented x 3. Gait is severely antalgic. Lower extremity motor, she has negative straight leg raise bilaterally. She is exquisitely tender and some what edematous over the mid lumbar spinous processes or over the paraspinous musculature. PAST MEDICAL HISTORY: Signi ficant for depression, osteoporosis, hypothyroidism, diabetes, anxiety, hypertension. PAST SURGICAL HISTORY: Righ t shoulder, unspecified; right wrist, unspecified; right knee, unspecified; left shoulder, unspecified; and hysterectomy. CURRENT MEDICATIONS: Include: 1. Felton. 2. Gabapentin. 3. Meloxicam. 4. Fluoxetine. 5. . 6. Metformin. 7. Atorvastatin. 8. Bupropion. 9. Lisinopril. 10. Furosemide. 11. Diazepam. 12. Tramadol. ALLERGIES: TO PENICILLIN. 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 PLAN: Dr. Bass met with the patient, ritchie ocasio, advocated for an L4-5 spinous process resection. He explained to the patient the risks, benefits, and alternatives to the procedu re. The patient expressed understanding and elected to move forward with surgery as discussed. I do be lieve the patient is mentally competent and capable of [facility] medical decisions for herself. We will move forward with surgery as planned. Job ID: [id number] K Dictated by: Omkar Moran <Electronically signed by Omkar Moran> 0 10/17/19 1125 K Dictated Date/Time: 10/15/19 1247 Transcribed Date/Time: 10/15/19 1307 Hydrostatic Tubing Tester: [email or web address]"
[2023-01-26] MEDS ORDERED: METHYLPREDNISOLONE 125 MG INJ ONE (09:42)
[2023-01-26] MEDS ORDERED: ALBUTEROL 2.5 MG/3 ML NEB SOL ONE (09:43)
[2023-01-26] MEDS ORDERED: IPRATROPIUM BROM 0.5MG/2.5ML ONE (09:43)
[2023-01-26 09:47] LABS: Absolute Lymphocytes (CBC) 6.6 K/uL (0.7-4.9); Hematocrit 40.3 % (36.0-45.0); Lymphocytes % 32.6 % (15.3-44.8); MCV 91.8 fL (80-100); MPV 7.8 fL (7.6-11.3); Platelets 433 thou/uL (152-406); RBC Red Blood Cell Count 4.39 M/uL (3.86-4.86)
[2023-01-26 09:55] LABS: SARS-CoV-2 Antigen Rapid Res Negative (Negative)
[2023-01-26 10:03] LABS: Potassium 3.7 mEq/L (3.5-5.1); Troponin High Sensitivity 6.8 pg/mL (<58.9)
--- NOTE | 2023-01-26 10:24 | RAD REPORT ---
EXAM DESCRIPTION: Devika Single View01/26/2023 10:10 am CLINICAL HISTORY: Shortness of breath COMPARISON: November 2022 FINDINGS: Small lung nodules without obvious change. No pulmonary infiltrate seen The heart is normal size
[2023-01-26 10:25] LABS: Platelet Estimate ADEQ
[2023-01-26 10:26] LABS: Blood Morphology Comment NOT SEEN (NOT SEEN)
[2023-01-26] MEDS ORDERED: NA CHLORIDE 0.9% 250 ML ONE (10:49)
[2023-01-26] MEDS ORDERED: AZITHROMYCIN 500 MG INJ IVPB ONE (10:49)
--- NOTE | 2023-01-26 12:00 | ER ---
Nurse's Notes [facility] Name: Darlene Carpio Age: 73 yrs Sex: Female : 1950 Arrival Date: 01/26/2023 Time: 09:16 Bed 6 Private MD: Diagnosis: Acute bronchitis, unspecified Presentation: 01/26 09:19 Ebola Screen: Patient denies travel to an Ebola-affected area in the 21 days before [facility] illness onset. Initial Sepsis Screen: Does the patient meet any 2 criteria? No. Patient's initial sepsis screen is negative. Does the patient have a suspected source of infection? Yes: Productive cough/pneumonia. Risk Assessment: Do you want to hurt yourself or someone else? Patient reports no desire to harm self or others. 09:19 Method Of Arrival: Wheelchair [facility] 09:19 Acuity: JESSIE 3 1 09:21 Chief complaint: Patient states: SOB, sore throat, lost voice for 1 week. Sent in for 1 further eval by PCP. Coronavirus screen: Vaccine status: Patient reports receiving the 2nd dose of the covid vaccine. Client denies travel out of the [place] in the last 14 days. cough unrelated to allergies, difficulty breathing, muscle pain, shortness of breath, Client presents with at least one sign or symptom that may indicate coronavirus-19. Standard/surgical mask placed on the client. Onset of symptoms was January 18, 2023. Triage Assessment: 09:22 General: Appears uncomfortable, ill, Behavior is cooperative, appropriate for age, ll1 restless. EENT: Reports pain when swallowing. Respiratory: Reports shortness of breath cough that is labored breathing Onset: The symptoms/episode began/occurred 1 week, the patient has moderate shortness of breath. Historical: - Allergies: 09:18 PENICILLINS; ll1 - PMHx: 09:18 Depression; Diabetes - NIDDM; GERD; High Cholesterol; Hypertension; ll1 - Immunization history:: Adult Immunizations up to date. - Social history:: Smoking status: Patient/guardian denies using tobacco. Screenin:10 [facility] ED Fall Risk Assessment (Adult) History of falling in the last 3 months, ko1 including since admission No falls in past 3 months (0 pts) Confusion or Disorientation No (0 pts) Intoxicated or Sedated No (0 pts) Impaired Gait No (0 pts) Mobility Assist Device Used Yes (1 pt) Altered Elimination No (0 pt) Score/Fall Risk Level 0 - 2 = Low Risk Oriented to surroundings, Maintained a safe environment, Educated pt \T\ family on fall prevention, incl call for assistance when getting out of bed, Assessed \T\ reinforced patient's understanding of fall precautions, Provided non-skid footwear, Hourly rounding (assess needs \T\ fall precautionary measures) done, Used ambulatory aids as needed (educated on \T\ assisted with), Used gait belt as appropriate. Abuse screen: Denies threats or abuse. Denies injuries from another. Nutritional screening: No deficits noted. Tuberculosis screening: No symptoms or risk factors identified. Assessment: 09:10 General: Appears distressed, uncomfortable, Behavior is cooperative, appropriate for ko1 age, anxious. Pain: Denies pain. Neuro: No deficits noted. Cardiovascular: Rhythm is regular. Respiratory: Airway is patent Respiratory effort is even, labored, Breath sounds are clear bilaterally. GI: No deficits noted. : No deficits noted. EENT: No deficits noted. Derm: No deficits noted. Musculoskeletal: No deficits noted. Vital Signs: 09:10 BP 132 / 70; Pulse 64; Resp 18; Pulse Ox 99% on R/A; ko1 09:48 BP 142 / 75; Pulse 68; Resp 18; Pulse Ox 100% on Nebulizer Mask; ld1 13:18 BP 136 / 72; Pulse 62; Resp 18; Pulse Ox 100% ; ko1 ED Course: 09:10 Patient has correct armband on for positive identification. Bed in low position. Call ko1 light in reach. Side rails up X2. Provided Education on: na. Pulse ox on. NIBP on. Door closed. Noise minimized. Lights dimmed. Warm blanket given. 09:10 Inserted saline lock: 20 gauge in right forearm, using aseptic technique. Blood ko1 collected. 09:16 Patient arrived in ED. rg4 09:16 Renee Bermeo FNP is PHCP. jh7 09:16 Evans Ram MD is Attending Physician. jh7 09:18 Arm band placed on Patient placed in an exam room, on a stretcher. ll1 09:19 Triage completed. ll1 09:19 Elvie Rg, LOUISE is Primary Nurse. ko1 09:29 SARS RAPID Sent. ko1 09:38 Basic Metabolic Panel Sent. ko1 09:38 CBC with Diff Sent. ko1 09:38 NT PRO-BNP Sent. ko1 09:38 Troponin HS Sent. ko1 10:12 XRAY Chest (1 view) In Process Unspecified. EDMS 10:41 Lactate w/ 2H reflex if indic. Sent. ko1 13:18 No provider procedures requiring assistance completed. IV discontinued, intact, ko1 bleeding controlled, No redness/swelling at site. Pressure dressing applied. Administered Medications: 09:38 Drug: DuoNeb Nebulize (3:1) (2.5 mg - 0.5 mg) 3 ml Route: Nebulizer; ko1 09:40 Drug: MethylPrednisoLONE IVP 125 mg Route: IVP; Site: right forearm; ko1 10:41 Drug: AZITHromycin IVPB 500 mg Route: IVPB; Infused Over: 1 hrs; Site: right forearm; ko1 Medication: 09:10 VIS not applicable for this client. ko1 Outcome: 11:59 Discharge ordered by . too 13:18 Discharged to home via wheelchair, with family. ko1 13:18 Condition: improved 13:18 Discharge instructions given to patient, family, Instructed on discharge instructions, follow up and referral plans. medication usage, Demonstrated understanding of instructions, follow-up care, medications. 13:19 Prescriptions given X x5 ko1 13:19 Patient left the ED. ko1 Signatures: Dispatcher [employer] EDMS Toya Lovett rg4 Lauren Holm RN RN ll1 Jasmin Carter RN RN ld1 Renee Bermeo, WEBSPHERE CONSULTANT WEBSPHERE CONSULTANT 7 Elvie Rg RN RN ko1 Corrections: (The following items were deleted from the chart) 09:48 09:48 BP 142 / 75; Pulse 68bpm; Resp 18bpm; Pulse Ox 100%; ld1 ld1
--- NOTE | 2023-01-26 12:00 | EDPHYS ---
Physician Documentation [facility] Name: Darlene Carpio Age: 73 yrs Sex: Female : 1950 Arrival Date: 01/26/2023 Time: 09:16 Bed 6 Private MD: ED Physician Evans Ram HPI: 01/26 09:18 This 73 yrs old Female presents to ER via Wheelchair with complaints of Breathing jh7 Difficulty. 09:18 The patient has shortness of breath at rest. Onset: The symptoms/episode began/occurred jh7 1 week(s) ago. Associated signs and symptoms: Pertinent positives: non-productive cough, Pertinent negatives: chest pain, fever. Patient presents with shortness of breath and cough progressing over the last week. She denies fever. Was sent by her PCP for IV antibiotics and suspected pneumonia. Reports that she was prescribed a Medrol Dosepak with no relief.. Historical: - Allergies: 09:18 PENICILLINS; ll1 - PMHx: 09:18 Depression; Diabetes - NIDDM; GERD; High Cholesterol; Hypertension; ll1 - Immunization history:: Adult Immunizations up to date. - Social history:: Smoking status: Patient/guardian denies using tobacco. ROS: 09:18 Constitutional: Negative for fever, chills, and weight loss, Eyes: Negative for injury, jh7 pain, redness, and discharge, Neck: Negative for injury, pain, and swelling, Cardiovascular: Negative for chest pain, palpitations, and edema, Abdomen/GI: Negative for abdominal pain, nausea, vomiting, diarrhea, and constipation, Back: Negative for injury and pain, MS/Extremity: Negative for injury and deformity, Skin: Negative for injury, rash, and discoloration, Neuro: Negative for headache, weakness, numbness, tingling, and seizure. 09:18 Respiratory: Positive for cough, shortness of breath, wheezing. 09:18 All other systems are negative. Exam: 09:18 Head/Face: Normocephalic, atraumatic. Eyes: Pupils equal round and reactive to light, jh7 extra-ocular motions intact. Lids and lashes normal. Conjunctiva and sclera are non-icteric and not injected. Cornea within normal limits. Periorbital areas with no swelling, redness, or edema. Neck: Trachea midline, no thyromegaly or masses palpated, and no cervical lymphadenopathy. Supple, full range of motion without nuchal rigidity, or vertebral point tenderness. No Meningismus. Cardiovascular: Regular rate and rhythm with a normal S1 and S2. No gallops, murmurs, or rubs. Normal PMI, no JVD. No pulse deficits. Abdomen/GI: Soft, non-tender, with normal bowel sounds. No distension or tympany. No guarding or rebound. No evidence of tenderness throughout. Back: No spinal tenderness. No costovertebral tenderness. Full range of motion. Skin: Warm, dry with normal turgor. Normal color with no rashes, no lesions, and no evidence of cellulitis. MS/ Extremity: Pulses equal, no cyanosis. Neurovascular intact. Full, normal range of motion. Neuro: Awake and alert, GCS 15, oriented to person, place, time, and situation. Motor strength 5/5 in all extremities. Sensory grossly intact. Normal gait. 09:18 Constitutional: The patient appears alert, awake, uncomfortable. 09:18 ENT: Nose: is normal, Posterior pharynx: is normal, Voice: is hoarse. 09:18 Respiratory: mild respiratory distress is noted, Respirations: normal, Breath sounds: wheezing: Persistent, hacking cough making it difficult for the patient to speak. Vital Signs: 09:10 BP 132 / 70; Pulse 64; Resp 18; Pulse Ox 99% on R/A; ko1 09:48 BP 142 / 75; Pulse 68; Resp 18; Pulse Ox 100% on Nebulizer Mask; ld1 13:18 BP 136 / 72; Pulse 62; Resp 18; Pulse Ox 100% ; ko1 MDM: 09:17 Patient medically screened. [facility] 12:00 Differential diagnosis: asthma, Bronchitis Chronic Obstructive Pulmonary Disease jh7 pneumonia, reactive airway disease. Data interpreted: heel sprayer first: rate is 62 beats/min, rhythm is normal sinus rhythm, Pulse oximetry: is 100 %. Interpretation: normal. The patient's pulmonary embolism risk score was calculated as follows: No Risks (0 Pts) Total Score: 0-2 points. This patient was found to be at low risk for a pulmonary embolism by using the Well's assessment criteria. Data reviewed: vital signs, nurses notes, lab test result(s), EKG, radiologic studies, plain films. I considered the following discharge prescriptions or medication management in the emergency department Medications were administered in the Emergency Department. See MAR. Independent interpretation of the following test(s) in the Emergency Department EKG: See my EKG interpretation above. Historians other than the Patient: Daughter/Son: daughter. Care significantly affected by the following chronic conditions: Diabetes, Hypertension. Counseling: I had a detailed discussion with the patient and/or guardian regarding the historical points, exam findings, and any diagnostic results supporting the discharge/admit diagnosis, to return to the emergency department if symptoms worsen or persist or if there are any questions or concerns that arise at home. Response to treatment: the patient's symptoms have markedly improved after treatment. ED course: Discussed the patient's elevated white blood cell count. The patient and her daughter stated that since she has been on iron infusions her white blood cell count has been high. This could also be attributed to recent systemic steroids. Inform them that the x-ray showed no pneumonia and that this was likely acute bronchitis. Antibiotics were prescribed due to the progression and duration of symptoms. Will cover for atypical pneumonia.. 01/26 09:24 Order name: Basic Metabolic Panel; Complete Time: 10: [facility] 01/26 09:24 Order name: CBC with Diff; Complete Time: [facility] 01/26 09:24 Order name: NT PRO-BNP; Complete Time: 10: [facility] 01/26 09:24 Order name: Troponin HS; Complete Time: 10: [facility] 01/26 09:24 Order name: SARS RAPID; Complete Time: 10: [facility] 01/26 09:51 Order name: Manual Differential; Complete Time: : [facility] 01/26 10:17 Order name: Lactate w/ 2H reflex if indic.; Complete Time: 11:57 [facility] 01/26 09:24 Order name: XRAY Chest (1 view); Complete Time: : [facility] 01/26 09:24 Order name: EKG; Complete Time: : [facility] 01/26 09:24 Order name: Cardiac monitoring; Complete Time: : [facility] 01/26 09:24 Order name: EKG - Nurse/Tech; Complete Time: 09:29 [facility] 01/26 09:24 Order name: IV Saline Lock; Complete Time: : [facility] 01/26 09:24 Order name: Labs collected and sent; Complete Time: 09:38 7 01/26 09:24 Order name: O2 Per Protocol; Complete Time: [facility] 01/26 09:24 Order name: O2 Sat Monitoring; Complete Time: EC:26 Rate is 86 beats/min. Rhythm is regular. QRS [place] is Normal. ND interval is normal at jh7 130 msec. QRS interval is normal at 72 msec. QT interval is normal at 364 msec. No Q waves. T waves are Normal. No ST changes noted. Clinical impression: Normal ECG. Administered Medications: : Drug: DuoNeb Nebulize (3:1) (2.5 mg - 0.5 mg) 3 ml Route: Nebulizer; ko1 09:40 Drug: MethylPrednisoLONE IVP 125 mg Route: IVP; Site: right forearm; ko1 10:41 Drug: AZITHromycin IVPB 500 mg Route: IVPB; Infused Over: 1 hrs; Site: right forearm; ko1 Disposition: 13:57 Co-signature as Attending Physician, Evans Ram MD I reviewed the patient's care rn provided by the Advanced Practice Provider and agree with the diagnosis and treatment plan. Disposition Summary: 01/26/23 11:59 Discharge Ordered Location: Home [facility] Problem: new [facility] Symptoms: have improved [facility] Condition: Stable [facility] Diagnosis - Acute bronchitis, unspecified [facility] Followup: [facility] - With: Private Physician - When: 2 - 3 days - Reason: Recheck today's complaints Discharge Instructions: - Discharge Summary Sheet [facility] - Acute Bronchitis, Adult [facility] Forms: - Medication Reconciliation Form [facility] - Thank You Letter [facility] - Antibiotic Education [facility] - Patient Portal Instructions [facility] - Leadership Thank You Letter [facility] Prescriptions: - ProAir RespiClick 90 mcg/actuation Inhalation Aerosol Powder, Breath Activated - administer 2 puff by INHALATION route every 4-6 hours As needed as needed for 7 shortness of breath; until breathing returns to target peak flow/parameters; 1 Each; Refills: 0, Product Selection Permitted - promethazine-DM 6.25-15 mg/5 mL Oral syrup - administer 10 milliliter by ORAL route every 6 hours As needed as needed for jh7 cough; 240 milliliter; Refills: 0, Product Selection Permitted - Tessalon Perles 100 mg Oral Capsule - take 1 capsule by ORAL route every 8 hours As needed; 15 capsule; Refills: 0, jh7 Product Selection Permitted - Zithromax Z-French 250 mg Oral Tablet - take 1 tablet by ORAL route as directed for 5 days Day 1 - take two (2) tablets jh7 one time. Day 2, 3, 4 , 5 take one (1) tablet once daily.; 6 tablet; Refills: 0, Product Selection Permitted - Prednisone 20 mg Oral Tablet - take 2 tablets by ORAL route once daily for 5 days; 10 tablet; Refills: 0, jh7 Product Selection Permitted Signatures: Dispatcher [employer] EDEvans Cuadra MD MD rn Lewis, Lynsay, RN RN ll1 Renee Bermeo, RESEARCH GENETICIST [facility]7 Elvie Rg RN RN ko1
[2023-01-26 13:40] VITALS: O2SAT 100
[2023-01-26 13:45] VITALS: BP 136/72
--- NOTE | 2023-01-27 15:24 | EKG ---
Test Date: 2023-01-26 Test Time: 09:26:22 [employer]: SHEILA MEASUREMENT RESULTS: Intervals: Rate: 86 MO: 130 QRSD: 72 QT: 364 QTc: 435 [place]: P: 65 MO: 130 QRS: 61 T: 60 INTERPRETIVE STATEMENTS: Normal sinus rhythm Normal ECG Compared to ECG 10/04/2021 10:39:50 No significant changes Electronically Signed On 01-27-23 15:21:53 CDT by Otoniel Peace
== END 2023-01-26 13:19 | disposition home or self-care (01) ==
LOC: ER 09:16
DX: J20.9 Acute bronchitis, unspecified (principal); E11.9 Type 2 diabetes mellitus without complications; I10 Essential (primary) hypertension; Z20.822 Contact with and (suspected) exposure to COVID-19; Z88.0 Allergy status to penicillin
CPT/HCPCS: 93005; 85025; 80048; 36415; 83605; 84484; 83880; 71045; 94640; 96375; 96374; 99285; 87811; J7613; J7644; J2930; J7050

== ENCOUNTER 2025-02-18 09:24 | Emergency (ER) | payer OTHER ==
--- OUTSIDE RECORDS SUMMARY | 2025-02-18 09:29 | XMS REPORT | Continuity of Care Document ---
Author Name Unknown Address [address] [place] [address] Organization [facility] [place] Address [address] [place] [address] Care Team Providers Care [employer] Con[employer] Washer Name Role Phone Terri Conte Primary Care Physician [phone] Yoseph Bustillos Attending Clinician Unavailable Maia Bearden Attending Clinician Unknown, Attending Attending Clinician Unavailab MAIA Gutierrez Attending Clinician Unavailable Zulay Clement DO Attending Clinician [phone] ZULAY CLEMENT Attending Clinician Unavailable ZULAY CLEMENT Attending Clinician Unavailable Zulay Clement DO Attending Clinician [phone] Doctor Unassigned, [facility] Attending Clinician U Giulia Valdivia NP Attending Clinician [phone] Paul Sanchez MD Attending Clinician [phone] PAUL SANCHEZ Attending Clinician Unavailable Lam Bass Attending Clinician Unavail able Lam Alvarado Attending Clinician Unavailable Sameer Nava Attending Clinician Unavailable Melyssa Damon PA-C Attending Clinician Unaana vernon PROVIDER, ED TEMP Attending Clinician UnavailGIULIA Ontiveros Admitting Clinician Unavailable Payers Payer Name Policy Type Policy Number Effective Date Expirati on Date Source [facility] [id number] 2022 00:00:00 Problems Condition Name Condition Details Condition Category Status Onset Date Resolution Date Last Treatment Date Treating Clinician Comments Source Problem No known problems ASSERTION [facility] ([place] Allergies, Adverse Reactions, Alerts Allergy Name Allergy Type Status Severity Reaction(s) Onset Date Inactive Date Treating Clinician Comments Source Penicill in Propensi ty to adverse reaction s Active Swelling 01-19 00:00: 00 [facility] PENICILL IN DRUG INGREDI Active Swelling 01-19 00:00: 00 [facility] Penicill ins DA Active U 10-13 00:00: 00 [facility] Jessica cristobal Penicill ins Allergy to Substanc e Active 10-13 00:00: 00 [facility] ([place]) NO KNOWN ALLERGIE S Drug Class Active [facility] Social History Social Habit Start Date Stop Date Quantity Comments Source Gender identity [facility] Sexual orientation U [facility] ASSERTION Possible [facility] Sex assigned at 1950 00:00:00 1950 00:00:00 [facility] Smoking Status Start Date Stop Date Source Tobacco smoking consumption unknown [facility] Medications Ordered Medication Name Filled Medication Name Start Date Stop Date Current Medication? Ordering Clinician Indication Dosage Frequency Signature (SIG) Comments Components Source ketorolac (TORADOL) injection 30 mg 09-23 21:30: 00 09-23 20:43 :00 No [id number] 30mg 30 mg, Intramuscu lar, ONCE, 1 dose, On Mon09/23/24 at 1630, EILEEN [facility] methocarbam oL 500 mg tablet 09-23 00:00: 00 Yes [id number] 500mg Take 1 tablet by mouth 4 (four) times daily as needed for Pain (scale 7-10). [facility] fluticasone propion-glen meteroL (ADVAIR DISKUS) 250-50 mcg/dose inhalation disk 06-13 00:00: 00 Yes [id number] 1{puff} Inhale 1 Puff every 12 (twelve) hours. [facility] furosemide 40 mg tablet 02-07 09:58: 07 Yes 1 tablet Orally Once a day as needed for 90 days [facility] gabapentin 600 mg tablet 02-07 09:58: 07 Yes 600mg 1 tablet. [facility] omeprazole 40 mg capsule 02-07 09:58: 07 Yes 40mg 1 capsule. [facility] ondansetron 4 mg tablet 02-07 09:58: 07 Yes 1 tablet Orally Once a day for 90 days [facility] atorvastati n 40 mg tablet 02-07 09:58: 07 Yes 40mg Take 1 tablet by mouth at bedtime. [facility] cyclobenzap rine 10 mg tablet 02-07 09:58: 07 Yes TAKE 1 TABLET BY MOUTH EVERY NIGHT AT BEDTIME NEEDED FOR 90 DAYS for 90 [facility] diclofenac 50 mg EC tablet 02-07 09:58: 07 Yes [facility] SERTraline 50 mg tablet 02-07 09:58: 07 Yes Take 1 tablet every day by oral route. [facility] levothyroxi ne 50 mcg tablet 01-26 00:00: 00 Yes [facility] lisinopriL 2.5 mg tablet 01-26 00:00: 00 Yes 5mg Take 2 tablets in the morning. [facility] cetirizine (ZYRTEC) tablet 5 mg 01-20 14:00: 00 Yes 5mg 5 mg, Oral, DAILY, First dose on Mon01/20/23 at 0900, Until Discontinu ed, [facility]ropium -albuteroL (DUONEB) 0.5 mg-3 mg(2.5 mg base)/3 mL nebulizer solution 3 mL 01-20 01:00: 00 Yes 3mL 3 mL, Inhalation , QID, First dose on Mon01/19/23 at 2000, Until Discontinu ed, Routine [facility] KCL (KLOR-CON M20) tablet 20 mEq 01-20 01:00: 00 01-20 01:23 :00 No 20meq 20 mEq, Oral, ONCE, 1 dose, On [place] 01/19/23 at 1999, EILEEN [facility] methylPREDN ISolone sodium succinate (SOLU-MEDRO L) injection 125 mg 01-20 00:45: 00 01-20 00:45 :00 No 125mg 125 mg, Intravenou s, ONCE, 1 dose, On [facility] 01/19/23 at 194, Routine [facility] ipratropium -albuteroL (DUONEB) 0.5 mg-3 mg(2.5 mg base)/3 mL nebulizer solution 9 mL 01-20 00:45: 00 01-19 23:58 :00 No 9mL 9 mL, Inhalation , ONCE NOW, 1 dose, On [place] 01/19/23 at 1944, Routine [facility] methylPREDN ISolone 4 mg tablets 01-19 00:00: 00 Yes [id number] Take by mouth SEE-INSTRU CTIONS. follow package directions [facility] fluticasone propion-glen meteroL (ADVAIR DISKUS) 250-50 mcg/dose inhalation disk 01-19 00:00: 00 Yes [id number] 1{puff} Inhale 1 Puff in the morning and 1 Puff in the evening. [facility] traZODone 50 mg tablet 11-22 00:00: 00 Yes 1 tablet at bedtime as needed Orally Once a day for 90 days [facility] traMADoL 50 mg tablet 615 00:00: 00 Yes [facility] baclofen 10 mg tablet 2021-05- 00:00: 00 Yes 1 tablet as needed Orally Twice a day for 90 days [facility] albuterol 2.5 mg /3 mL (0.083 %) nebulizer solution 8 00:00: 00 Yes 3 mL as needed Inhalation every 4 hrs for 90 days [facility] fluticasone -umeclidin- vilanter (TRELEGY ELLIPTA) 100-62.5-25 mcg DsDv 8-09 00:00: 00 Yes 1{puff} 1 Puff. [facility] Metformin Hcl 2019-0 18 00:00: 00 No [facility] 500MG Twice Daily [facility] ([place] Omeprazole 2019-0 18 00:00: 00 [facility] 20MG Bedtime [facility] ([place] Atorvastati n Calcium 2019-0 18 00:00: 00 No [facility] 40MG Bedtime [facility] ([place] Bupropion Hcl 2019-0 18 00:00: 00 [facility] 300MG Daily [facility] ([place] Fluoxetine Hcl 2019-0 18 00:00: 00 [facility] 20MG Daily [facility] ([place] Hydrocodone /Acetaminop hen 2019-0 18 00:00: 00 [facility] 1TAB As Needed PRN For Pain [facility] ([place] Levothyroxi ne Sodium 2019-0 18 00:00: 00 [facility] 50MCG Daily [facility] ([place] Lisinopril 2019-0 18 00:00: 00 [facility] 2.5MG Bedtime [facility] ([place] Meloxicam 2019-0 18 00:00: 00 [facility] 15MG Daily [facility] ([place] Vital Signs Vital Name Observation Time Observation Value Comments S ource Systolic blood pressure 2024-09-23 20:12:00 156 mm[Hg] [place] [facility] Diastolic blood pressure 2024-09-23 20:12:00 78 mm[Hg] [place] [facility] Heart rate 2024-09-23 20:08:00 76 /min [facility] Body temperature 2024-09-23 20:08:00 36.56 Selena [facility] Respiratory rate 2024-09-23 20:08:00 14 /min [facility] Body height 2024-09-23 20:08:00 156.2 cm per pt [facility] Body weight 2024-09-23 20:08:00 64.638 kg [facility] BMI 2024-09-23 20:08:00 26.49 kg/m2 [facility] saturation in Arterial blood by Pulse oximetry 2024-09-23 20:08:00 100 /min [facility] Systolic blood pressure 2023-04-25 17:10:00 137 mm[Hg] [facility] Diastolic blood pressure 2023-04-25 17:10:00 84 mm[Hg] [facility] Heart rate 2023-04-25 17:10:00 79 /min [facility] Respiratory rate 2023-04-25 17:10:00 20 /min [facility] Body height 2023-04-25 17:10:00 156.2 cm [facility] Body weight 2023-04-25 17:10:00 76.743 kg [facility] BMI 2023-04-25 17:10:00 31.45 kg/m2 [facility] Oxygen saturation in Arterial blood by Pulse oximetry 2023-04-25 17:10:00 100 /min [facility] Systolic blood pressure 2023-02-07 14:59:00 114 mm[Hg] [facility] Diastolic blood pressure 2023-02-07 14:59:00 78 mm[Hg] [facility] Heart rate 2023-02-07 14:59:00 75 /min [facility] Respiratory rate 2023-02-07 14:59:00 18 /min [facility] Body height 2023-02-07 14:59:00 154.9 cm [facility] Body weight 2023-02-07 14:59:00 77.61 kg [facility] BMI 2023-02-07 14:59:00 32.33 kg/m2 [facility] Oxygen saturation in Arterial blood by Pulse oximetry 2023-02-07 14:59:00 98 /min [facility] Systolic blood pressure 2023-01-20 00:03:09 131 mm[Hg] [facility] Diastolic blood pressure 2023-01-20 00:03:09 101 mm[Hg] [facility] Body temperature 2023-01-20 00:03:09 36.94 Selena [facility] Respiratory rate 2023-01-20 00:03:09 20 /min [facility] Heart rate 2023-01-20 00:00:00 125 /min [facility] Oxygen saturation in Arterial blood by Pulse oximetry 2023-01-20 00:00:00 98 /min [facility] Body weight 2023-01-19 23:14:00 77.111 kg [facility] WEIGHT 2021-04-02 16:03:39 80.661667 kg HEIGHT 2021-04-02 16:03:39 154.94 cm WEIGHT 2021-04-02 15:59:13 80.137096 kg HEIGHT 2021-04-02 15:59:13 154.94 cm WEIGHT 2021-04-02 15:55:41 80.579758 kg HEIGHT 2021-04-02 15:55:41 154.94 cm WEIGHT 2021-04-02 15:53:11 80.233489 kg HEIGHT 2021-04-02 15:53:11 154.94 cm Body Temperature 2021-03-31 10:48:[address] [facility] ([place] Heart Rate 2021-03-31 10:48:34 [facility] Respiratory Rate 2021-03-31 10:48:[address] [facility] ([place] O2 % BldC Oximetry 2021-03-31 10:48:[address] [facility] ([place] BP Systolic 2021-03-31 10:48:[address] [facility] ([place] BP Diastolic 2021-03-31 10:48:[address] [facility] ([place] Height 2019-10-14 13:48:00 154.94 cm [facility] Weight Measured 2019-10-14 13:48:00 80.73 kg [facility] BMI (Body Mass Index) 2019-10-14 13:48:00 33.6 kg/m2 [facility] Procedures Procedure Date / Time Performed Performing Clinicia n Source POCT URINALYSIS 2024-09-23 00:00:00 Maia Jackson [facility] MEDICAL RELEASE/CLEARANCE FORMS 2023-04-25 06:01:00 Doctor Unassigned, [facility] CONSENT/REFUSAL FOR DIAGNOSIS AND TREATMENT 2023-02-07 14:13:24 Doctor Unassigned, [facility] AC PANEL 21 + LACTIC ACID 2023-01-20 00:28:00 Giulia Moreno [facility] TROPONIN I 2023-01-19 23:42:00 Giulia Moreno [facility] COMP. METABOLIC PANEL (62513) 2023-01-19 23:42:00 Giulia Moreno [facility] CBC WITH DIFF 2023-01-19 23:42:00 Giulia Moreno [facility] N-TERMINAL PRO-BNP 2023-01-19 23:42:00 Giulia Moreno [facility] CONSENT/REFUSAL FOR DIAGNOSIS AND TREATMENT 2023-01-19 23:02:18 Doctor Unassigned, [facility] NOTICE OF PRIVACY PRACTICES 2023-01-19 23:01:45 Doctor Unassigned, [facility] XR Fluoro Per Hour Portable 2019-10-16 00:00:[address] [facility] EKG 12 Lead 2019-10-14 00:00:00 [facility] ([place]) Encounters Start Date/Time End Date/Time Encounter Type Admission Type Attending Clinicians Care Facility Care Department Encounter ID Source 2024-07-24 16:05:00 Outpatient [facility] [id number] [facility] 2022-10-31 08:36:00 Outpatient [facility] [id number] [facility] 2022-07-25 10:17:01 Outpatient [facility] [id number] [facility] 2022-07-19 08:14:01 Outpatient [facility] [id number] [facility] 2021-11-16 12:52:01 Outpatient [facility] [id number] [facility] 2021-09-13 10:27:03 Outpatient [facility] [id number] [facility] 2021-06-23 14:34:12 Outpatient [facility] [id number] [facility] 2017-04-25 08:00:00 Inpatient Yoseph Martinez STJ [facility] [id number] [facility] 2024-09-23 15:00:00 2024-09-23 15:20:00 Urgent Care Maia Jackson Unknown, Attending [facility] 1.84.114 350.1.13.10 4.2.7.2.686 [id number] [facility] 2024-09-23 15:00:00 2024-09-23 15:00:00 Outpatient Ritchie LEE JACKSONE [facility] [id number] [facility] 2024-06-19 00:00:00 2024-06-28 16:18:33 Refill Zulay Clement [facility] BUILDING [id number] 350.1.13.10 4.2.7.2.686 [id number] [facility] 2023-06-06 00:00:00 2023-06-06 00:00:00 [facility] 1.2.840.114 350.1.13.10 4.2.7.2.686 [id number] [facility] 2023-04-25 11:00:00 2023-04-25 11:29:47 Outpatient R ZULAY CLEMENT SHIWAN [facility] [id number] [facility] 2023-04-25 11:00:00 2023-04-25 11:29:47 Office Visit Zulay Clement [facility] BUILDING 1.2.840.114 350.1.13.10 4.2.7.2.686 [id number] [facility] 2023-04-25 00:00:00 2023-04-25 00:00:00 Telephone Zulay Clement [facility] BUILDING 1.2.840.114 350.1.13.10 4.2.7.2.686 [id number] [facility] 2023-04-25 00:00:00 2023-04-25 00:00:00 Telephone Zulay Clement [facility] BUILDING 1.2.840.114 350.1.13.10 4.2.7.2.686 [id number] [facility] 2023-04-25 00:00:00 2023-04-25 00:00:00 Telephone Zulay Clement [facility] BUILDING 1.2.840.114 350.1.13.10 4.2.7.2.686 [id number] [facility] 2023-04-25 00:00:00 2023-04-25 00:00:00 Orders Only Doctor Unassigned, [facility] 1.2.840.114 350.1.13.10 4.2.7.2.686 [id number] [facility] 2023-02-09 00:00:00 2023-02-09 00:00:00 [facility] 1.2.840.114 350.1.13.10 4.2.7.2.686 [id number] [facility] 2023-02-07 10:00:00 2023-02-07 10:41:44 Outpatient R ZULAY CLEMENT [facility] [id number] [facility] 2023-02-07 10:00:00 2023-02-07 10:41:44 Office Visit Irma Zulay [facility] 1.2.840.114 350.1.13.10 4.2.7.2.686 [id number] [facility] 2023-02-07 00:00:00 2023-02-07 00:00:00 Orders Only Doctor Unassigned, [place] [facility] 1.2.840.114 350.1.13.10 4.2.7.2.686 [id number] [facility] 2023-01-20 00:00:00 2023-01-20 00:00:00 Patient Secure Msg Doctor Unassigned, [place] 1.2.840.114 350.1.13.10 4.2.7.2.686 [id number] [facility] 2023-01-19 18:16:00 2023-01-19 20:37:00 Emergency Giulia Moreno Julio C [facility] 1.2.840.114 350.1.13.10 4.2.7.2.686 [id number] [facility] 2023-01-19 18:16:00 2023-01-19 20:37:00 Emergency X PAUL SANCHEZ [facility] ERT [id number] [facility] 2022-12-05 00:00:00 2022-12-05 00:00:00 Patient Secure Msg Doctor Unassigned, [place] 1.2.840.114 350.1.13.10 4.2.7.2.686 [id number] [facility] 2019-10-16 06:55:00 2019-10-16 14:30:00 Departed Surgical Day Care Lam Robertson 2.16.840. [id number] 3.4991.3. 1.2 [facility] [id number] 42 [facility]) 2019-10-16 13:30:00 2019-10-16 13:30:00 Outpatient Lam Bass [facility] [id number] [facility] 2019-10-14 13:30:00 2019-10-14 13:30:00 Outpatient Lam Bass [facility] [id number] [facility] 2019-10-14 07:45:00 2019-10-14 07:46:00 Departed Clinical Lam Robertson 2.16.840. [id number] 3.4991.3. 1.2 [facility] [id number] [facility] 2019-08-13 11:00:00 2019-08-13 11:00:00 Outpatient Lam Bass [facility] [id number] [facility] 2019-03-18 09:49:00 2019-03-18 09:50:00 Outpatient Ritchie Alvarado Lam [facility] [id number] [facility] 2019-01-31 08:00:00 2019-02-25 23:59:00 Outpatient Sameer Lomas [facility] [id number] [facility] 2019-01-25 10:00:00 2019-01-26 23:59:00 Outpatient Sameer Lomas [facility] [id number] [facility] 2017-06-01 11:00:00 2017-06-28 23:59:00 Outpatient Yoseph Martinez [facility] [id number] [facility] 2017-05-25 11:00:00 2017-05-28 23:59:00 Outpatient Yoseph [facility] [id number] [facility] 2017 12:37:00 2017 15:15:00 Emergency ER Melyssa Damon [facility] [id number] [facility] [place] Results Test Description Test Time Test Comments Results Result Co mments Source [facility] [id number] 01:13:38* Test Item Value Reference Range Interpretation Comme nts TROPONIN I (test code = 7856954592) 0.006 ng/mL <=0.034 MADELEINE (test code = [...] of biotin. Lab Interpretation (test code = 02904-9) Normal [facility] [id number] 01:11:01* Test Item Value Reference Range Interpretation Comme nts NT-proBNP (test code = 10586-7) 94 pg/mL <=125 Lab Interpretation (test cod e = 30716-1) Normal [facility]OLIC PANEL (30866)2023-01-20 01:02:17* Test Item Value Reference Range Interpretation Comme nts NA (test code = 5564238363) 144 mmol/L 135-145 K (test code = 4275175393) 3.9 mmol/L 3.5-5.0 CL (test code = 7227739631) 113 mmol/L 98-108 H CO2 TOTAL (test code = 6258225134) 22 mmol/L 23-31 L AGAP (test code = 9306747136) 9 2-16 BUN (test code = 9485862574) 25 mg/dL 7-23 H GLUCOSE (test code = 7497397312) 116 mg/dL 70-110 H CREATININE (test code = 9622690371) 1.01 mg/dL 0.50-1.04 TOTAL BILI (test code = 1243339594) 0.4 mg/dL 0.1-1.1 CALCIUM (test code = 7686089756) 9.6 mg/dL 8.6-10.6 T PROTEIN (test code = 5805486033) 7.6 g/dL 6.3-8.2 ALBUMIN (test code = 2418096607) 4.4 g/dL 3.5-5.0 ALK PHOS (test code = 5378438259) 114 U/L 34-122 ALTv (test code = 1742-6) 46 U/L 5-35 H AST(SGOT) (test code = 4741742983) 56 U/L 13-40 H eGFR (test code = 1004414328) 53.9 mL/min/1.73m2 MADELEINE (test code = MADELEINE) Association of [...] or abnormalities in imaging tests). Lab Interpretation (test code = 07747-8) Abnormal [facility] 21 + LACTIC [id number] 00:39:17* Test Item Value Reference Range Interpretation Comme nts PH (test code = 9102266048) 7.33 7.32-7.42 PCO2 MUSTAPHA (test code = 1846716738) 33 See_Comment L [Automated messa ge] The system which generated this result transmitted reference range: 41 - 51 mmHg. The reference range was not used to interpret this result as normal/abnormal. PO2 MUSTAPHA (test code = 1880566101) 116 See_Comment HH [Automated messa ge] The system which generated this result transmitted reference range: 25 - 40 mmHg. The reference range was not used to interpret this result as normal/abnormal. HCO3 [place]APHA (test code = 2046883633) 17 See_Comment L [Automated messa ge] The system which generated this result transmitted reference range: 24 - 28 mEq/L. The reference range was not used to interpret this result as normal/abnormal. AC VBE(BEAKER) (test code = 4853197772) -8.0 mEq/L THB MUSTAPHA (test code = 0454105543) 12.9 g/dL 12.0-16.0 %O2HB MUSTAPHA (test code = 6328662153) 95.7 % 52.0-63.0 H %COHB [place]HA (test code = 5550223975) 2.1 % 0.0-1.5 H %METHB [place]HA (test code = 1973380977) 0.0 % 0.4-1.5 L VOL%O2 MUSTAPHA (test code = 3106789186) 17.5 % 6.0-12.0 H NA (test code = 5204123051) 142 mmol/L 135-145 K+ (test code = 5558915294) 3.2 mmol/L 3.5-5.0 L AC CA IONZ (test code = 9885958229) 4.50 mg/dL 4.50-5.30 GLUCOSE (test code = 7385575442) 145 mg/dL 70-110 H LACTIC ACID (test code = 8141574103) 1.64 mmol/L 0.50-2.20 Lab Interpretation (test code = 85566-7) Abnormal [facility] WITH [id number] 00:24:32* Test Item Value Reference Range Interpretation Comme nts WBC (test code = 6690-2) 14.10 See_Comment H [Automated TMSa HelloFresh] The system which generated this result transmitted reference range: 4.30 - 11.10 10*3/?L. The reference range was not used to interpret this result as normal/abnormal. RBC (test code = 789-8) 4.30 See_Comment [Automated TMSa [employer]Fresh] The system which generated this result transmitted reference range: 3.93 - 5.25 10*6/?L. The reference range was not used to interpret this result as normal/abnormal. HGB (test code = 718-7) 13.5 g/dL 11.6-15.0 HCT (test code = 4544-3) 40.3 % 35.7-45.2 MCV (test code = 787-2) 93.7 fL 80.6-95.5 MCH (test code = 785-6) 31.4 pg 25.9-32.8 MCHC (test code = 786-4) 33.5 g/dL 31.6-35.1 RDW-SD (test code = 22337-5) 46.5 fL 39.0-49.9 RDW-CV (test code = 788-0) 13.7 % 12.0-15.5 PLT (test code = 777-3) 314 See_Comment [Automated TMSa ge] The system which generated this result transmitted reference range: 166 - 358 10*3/?L. The reference range was not used to interpret this result as normal/abnormal. MPV (test code = 82169-4) 10.8 fL 9.5-12.9 NRBC/100 WBC (test code = 9800700112) 0.0 See_Comment [Automated me ssage] The system which generated this result transmitted reference range: 0.0 - 10.0 /100 WBCs. The reference range was not used to interpret this result as normal/abnormal. NRBC x10^3 (test code = 6707850245) See_Comment [Automated messa ge] The system which generated this result transmitted reference range: 10*3/?L. The reference range was not used to interpret this result as normal/abnormal. GRAN MAT (NEUT) % (test code = 770-8) 70.3 % IMM GRAN % (test code = 1128904280) 0.30 % LYMPH % (test code = 736-9) 23.8 % MONO % (test code = 5905-5) 5.2 % EOS % (test code = 713-8) 0.0 % BASO % (test code = 706-2) 0.4 % GRAN MAT x10^3(ANC) (test code = 7506763374) 9.91 10*3/uL 1.88-7.09 H IMM GRAN x10^3 (test code = 9704847556) 0.04 10*3/uL 0.00-0.06 LYMPH x10^3 (test code = 731-0) 3.36 10*3/uL 1.32-3.29 H MONO x10^3 (test code = 742-7) 0.73 10*3/uL 0.33-0.92 EOS x10^3 (test code = 711-2) 0.03-0.39 L BASO x10^3 (test code = 704-7) 0.06 10*3/uL 0.01-0.07 Lab Interpretation (test code = 60978-5) [facility] [id number] 11:53:00* Test Item Value Reference Range Interpretation Comme nts Reference Lab Testing (test code = HMZDD09I) Not Detected NotDetected Negative (Not D etected) results do not preclude infectionwith SARS-CoV-2 virus, and should not be the sole basis of apatient management decision. Consider testing for otherviruses if clinically indicated.The use of this assay as an In vitro diagnostic under theFDA Emergency Use Authorization (EUA) is limited tolaboratories that are certified under the ClinicalLaboratory Improvement Amendments of 1988 (CLIA), 42 U.S.C.263a, to perform high complexity tests. Comment ER 10/15Laboratory [id number] 14:35:00Coronavirus (COVID-19)(PCR) [facility])Vctbhpelbe5155-49-09 14:35:00* Test Item Value Reference Range Interpretation Comme nts Urinalysis (test code = UACLR) YELLOW Yellow Urinalysis (test code = UACLY) CLEAR Clear Urinalysis (test code = SPGR) 1.027 1.002-1.036 N Urinalysis (test code = ARELY) 6.0 5.0-9.0 N Urinalysis (test code = UALEU) Small Negative A Urinalysis (test code = UANIT) Negative Negative Urinalysis (test code = PROUADIP) Negative mg/dL Neg-Trace Urinalysis (test code = GLUCU) Negative mg/dL Negative Urinalysis (test code = KETU) Negative mg/dL Negative Urinalysis (test code = UAUROB) 1.0 mg/dL 0.2-1.0 Urinalysis (test code = UABIL) Negative Negative Urinalysis (test code = UABLD) Negative Negative Urinalysis (test code = UARBC) 0-3 HPF 0-3 Urinalysis (test code = UAWBC) 11-20 HPF 0-3 A Urinalysis (test code = UASQUAM) 7-10 HPF 0-3 A Urinalysis (test code = UABAC) None Seen HPF None Seen Urinalysis (test code = UACAST) 0-3 HYALINE CAST LPF 0-3 Hyaline Urine Source: Urine VoidedCT [facility] Name: [address]. Phys: [place] [address] : 1950 Age: 69 SEX:F [phone] Exam Date: 08/13/19 Status: REG CLI Acct: [id number] Loc: BICCT Pt Unit #: [id number] Report #: [id number] CC: Lam Bass MD CAT SCAN REPORT Order # Category/Exam [id number] CT/CT Lumbar Spine WO [facility] ([id number]): . Results Exam: CT lumbar spine without contrast HISTORY: Low back pain. Bilateral lower extremity radiculopathy. Compar luzmaria none FINDINGS: No paraspinal mass, lymphadenopathy or hematoma. Atherosclerosis of a nonaneurysmal aorta Visualized alimentary canal is unremarkable. Nonobstructing calcification in the right renal pelvis. 5 lumbar type vertebra. Lumbar spine vertebral body height is maintained. There is no fra cture. No spondylolisthesis. No spondylolysis Vacuum joint phenomenon in both SI joints. Sacral alaare preserved. Sacral neural foramina are also unremarkable. [...] canal stenosis or significant neural foraminal narrowing L2- L3: Moderate loss of disc space height. Broad-based [...] to moderate bilateral neural foraminal narrowing L5-S1: Broad- based disc bulge abuts the thecal sac. There is encroachment upon both subarticular zones. Partial obscuration of bilateral traversing S1 nerve roots. Mild bilateral foraminal narrowing. IMPRESSION: 1. 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 2. No evidence of fracture. Reported By: Jacqui Kim MD Electronically Signed Date/Time: 08/13/19 1206 Technologist: TOYIN Dictated Date/Time: 08/13/19 1157 Transcribed Date/Time:MRI Lumbar Spine [facility] Pt Name: [address] [address] [facility]. Phys: Lam Alvarado NP [place] [address] : 1950 Age: 69 SEX:F [phone] Exam Date: 03/18/19 Status: REG CLI Acct: [id number] Loc: [facility] Pt Unit #: [id number] Report #: [id number] CC: Lam Alvarado NP OUT OF TOWN PHYSICIAN MRI REPORT Order # Category/Exam [id number] MRI/MRI Lumbar Spine WO [facility] ([id number]): . Results MRI LUMBAR SPINE NONCONTRAST: HISTORY: Compression fracture of the lumbar vertebrae. Low back pain for many years. COMPARISON: Lumbar spine MRI [facility] is not available for comparison at this time. FINDINGS: Slightly heterogeneous marrow signal intensity of the lumbar vertebra likely representing senescent change. Lumbar spine vertebral body height is maintained. Thereis no fracture. No significant STIR hyperintensity to [...] canal stenosis. Mild to moderate right neural fora veronica narrowing. Mild left neural foraminal narrowing. L3-L4:Desiccation with moderate to severe loss of disc space height. Broad-based disc bulge, ligament flavum thickening and facet hypertrophy result in moderate central canal stenosis. Mild to moderate bilateral neural foraminal narrowing. L4-L5 :Desiccation without significant loss of disc space height. Broad-based disc bulge, ligament flavumthickening and facet hypertrophy result in mild central canal stenosis. Mild to moderate right and mild left neural foraminal narrowing. L5-S1:Desiccation without significant loss of disc space height. Central disc protrusion. Ligament flavum thickening and facet hypertrophy are noted. Mild centralcanal stenosis. Mild right and left neural foraminal narrowing. IMPRESSION: Degenerative changes of the lumbar spine as detailed above. Transcribed Date/Time: 03/18/2019 12:21 PM Reported By: Jacqui Kim MD Electronically Signed Date/Time: 03/18/19 1310 Technologist: RANDI Dictated Date/Time: 03/18/19 1133 Transcribed Date/Time: Notes Date/Time Note Provider Source 2024-06-21 16:16:38 Requested Prescriptions Pending Prescriptions Disp Refills FLUTICASONE PROPION-SALMETEROL 250-50 mcg/dose inhalation disk [Pharmacy Med Name: FLUTI/SALM 250-50MCG/ACT INH] 2 Sig: INHALE 1 PUFF BY MOUTH EVERY 12 HOURS *RINSE MOUTH AFTER EACH USE* SUSANA 04/25/23 NOV not scheduled. [facility] Romina Mckeon RN [facility] 2023-06-13 11:09:11 Absolutely, will place order. [facility] 2023-06-07 15:21:23 Request for prescription for Advair SUSANA 04/25/23 NOV not scheduled Assessment: Abeba Nicole is a 73 year old female with: ICD-10-CM 1. DESHAWN (obstructive sleep apnea) G47.33 Plan: She has no evidence of COPD but she may have reactive airway disease/asthma, can continue with Trelegy and albuterol as needed Given only mild disease and asymptomatic no need for CPAP therapy at this time Will clear for upcoming shoulder surgery, patient is at low risk of pulmonary complications. Continues CPAP therapy in the postoperative period Follow-up 12 months [facility] Romina Mckeon RN [facility] 2023-06-06 14:27:04 Patient calling needing Advaire sent into her pharmacy. Please advise [id number] - [place], [place] - [address] [facility] Terri Mayorga [facility] 2023-06-06 14:12:27 Abeba Nicole is a 73 year old female patient calling pharmacy insurance has changed to [employer] and Triligy is no longer formulary, but Advair Diskus. Please call and change medication. Please call [phone] [facility] 2023-02-09 11:35:33 Formatting of this n ote might be different from the original. PFT results from Dr. Burnett's office. Placed in provider's box. [facility] 2023-01-19 18:13:23 Formatting of this n ote might be different from the original. Patient presents to triage with nephew. Patient with audible wheezing and is diaphoretic. HR at triage 138. Patient unable to speak in complete sentence. Hx of COPD, and current smoker. [facility] 2019-10-16 16:06:00 [facility] Name: ABEBA NICOLE [address] : 1950, Age: 69, Sex: F [place] [address] Unit #: [id number], Status: [facility] [phone] Location: [facility] Dictated by: Lam Bass MD Admission Date: Report #: [id number] Discharge Date: 10/16/19 CC: Mark Del Cid MD, James Bradley MD OPERATIVE NOTE DATE OF PROCEDURE: 10/16/2019 SURGERY CONSULTANT: Omkar Moran PA-C INDICATION: Axial back pain. PROCEDURE: Posterior element resection of spinous process of L4. ANESTHESIA: General. DESCRIPTION OF PROCEDURE: The patient was brought into the operating room and placed under general anesthesia. She was flipped from the supine to prone position on the operating room table. A linear incision was planned over the spinous process of L4. After prepping and draping and after an appropriate preoperative pause, the incision was created. The soft tissues were swept away from midline. A self-retaining retractor was placed. A C-arm image was obtained and confirmed the appropriate level with C-arm fluoroscopy. After confirming the appropriate level, an Adson rongeur was used to remove the spinous process of L4 down to the level of the lamina. The wound was then irrigated. Hemostasis was maintained throughout. The wound was then closed in anatomic layers and a pressure dressing was applied. There were no known procedural complications. Job ID: [id number] K Dictated by: Lam Bass MD <Electronically signed by Lam Bass MD> 10/18/19 0815 K Dictated Date/Time: 10/16/19 1009 Transcribed Date/Time: 10/16/19 1602 Furnace Installer: Lam Christensen LSJ 2019-10-15 13:16:00 [facility] Name: ABEBA NICOLE [address] [place] [address] : 1950, Age: 69, Sex: [place] [address] Unit #: [id number], Status: [facility] [phone] Location: [facility] Dictated by: Omkar Moran Admission Date: Report #: [id number] Discharge Date: 10/16/19 CC: Mark Del Cid MD, Jonathan PA White, James Bradley MD HISTORY AND PHYSICAL REPORT HISTORY OF PRESENT ILLNESS: Ms. Nicole is a pleasant 69-year-old woman, presenting to our office for evaluation of significant lower back pain over the last 2 years, which has gradually been intensifying her pain when walking, will spread somewhat into the bilateral buttock, but really does not have any significant radicular pain. She has had lumbar spine injections, which feel did not help her in the past. Pain is worsened with pressure on her back and when bending backwards as well as when walking. Pain improves in sitting, leaning forward. MRI from [facility] reveals [id number]-[id number] lateral recess stenosis in several areas, most significant at L4. However, again she has no significant radicular pain. 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 PHYSICAL EXAMINATION: NEUROLOGIC: The patient is alert and oriented x3. Gait is severely antalgic. Lower extremity motor, she has negative straight leg raise bilaterally. She is exquisitely tender and somewhat edematous over the mid lumbar spinous processes or over the paraspinous musculature. PAST MEDICAL HISTORY: Significant for depression, osteoporosis, hypothyroidism, diabetes, anxiety, hypertension. PAST SURGICAL HISTORY: Right shoulder, unspecified; right wrist, unspecified; right knee, unspecified; left shoulder, unspecified; and hysterectomy. CURRENT MEDICATIONS: Include: 1. [place]. 2. Gabapentin. 3. Meloxicam. 4. Fluoxetine. 5. . 6. Metformin. 7. Atorvastatin. 8. Bupropion. 9. Lisinopril. 10. Furosemide. 11. Diazepam. 12. Tramadol. ALLERGIES: TO PENICILLIN. ASSESSMENT: Baastrup disease and lower back pain. PLAN: Dr. Bass met with the patient, reviewed imaging, advocated for an L4-5 spinous process resection. He explained to the patient the risks, benefits, and alternatives to the procedure. The patient expressed understanding and elected to move forward with surgery as discussed. I do believe the patient is mentally competent and capable of making medical decisions for herself. We will move forward with surgery as planned. Job ID: [id number] K Dictated by: Omkar Moran <Electronically signed by Omkar Moran> 10/17/19 1125 K Dictated Date/Time: 10/15/19 1247 Transcribed Date/Time: 10/15/19 1307 Furnace Installer: Omkar Friedman STLSJ"
[2025-02-18] MEDS ORDERED: NA CHLORIDE 0.9% 1,000 ML ONE (09:56)
[2025-02-18] MEDS ORDERED: FOLIC ACID 5 MG/ML VIAL ONE (09:56)
[2025-02-18 10:00] LABS: Absolute Lymphocytes (CBC) 2.2 K/uL (0.7-4.9); Hematocrit 49.3 % (36.0-45.0); Hemoglobin 16.5 g/dL (12.0-15.0); MCH 30.5 pg (27.0-35.0); MCHC 33.5 g/dL (32.0-36.0); MCV 91.1 fL (80-100); MPV 8.8 fL (7.6-11.3); Nucleated RBC Absolute Count 0.0 (0-0); Nucleated Red Blood Cells % 0.1 % (0-0); RBC Red Blood Cell Count 5.41 M/uL (3.86-4.86); White Blood Count 11.30 thou/uL (4.3-10.9)
[2025-02-18 10:08] LABS: PT Prothrombin Time 10.7 SECONDS (10-13.0); Protime INR 0.95
--- NOTE | 2025-02-18 10:13 | RAD REPORT ---
EXAM: CT Ct Stroke Brain Wo Cont HISTORY: STROKE ALERT COMPARISON: 10/04/2021 TECHNIQUE: Multiple contiguous axial images were obtained for a CT of the brain without contrast. Sag ittal and coronal reformats were performed. One or more of the following dose reduction techniques were used: Automated exposure control, adjus tment of the mA and kV according to patient size, and iterative reconstruction. Unless otherwise specified, incidental findings do not require dedicated imaging follow-up. FINDINGS: No evidence of hydrocephalus, intracranial hemorrhage, or extra-axial fluid collection. Small focus of left parietal cortical encephalomalacia, stable. Left subinsular focus of near CSF de nsity is stable, may represent a prominent perivascular space. Mild brain atrophy with other nonspecific mild periventricular and deep white matter chronic microvascular ischemic changes present . The calvarium is intact. The visualized paranasal sinuses and mastoid air cells are essentially clear . IMPRESSION: No evidence of acute intracranial abnormality. Chronic findings as above. THIS REPORT CONTAINS FINDINGS THAT MAY BE CRITICAL TO PATIENT CARE. The findings were verbally commun icated via telephone to Vernon Harding MD on 02/18/2025 10:11 AM.
[2025-02-18 10:24] LABS: ALT/SGPT 16 U/L (13-56); AST/SGOT 23 U/L (15-37); Albumin 4.0 g/dL (3.4-5.0); Albumin/Globulin Ratio 1.0 (1.1-1.8); Alkaline Phosphatase 174 U/L (45-117); Anion Gap 12.0 mEq/L (5.0-15.0); BUN Blood Urea Nitrogen 27 mg/dL (7-18); Globulin 4.2 g/dL (2.3-3.5); Glucose Level 143 mg/dL (74-106); Magnesium 2.4 mg/dL (1.6-2.4); NT PRO-BNP 77 pg/mL (<125); Potassium 4.0 mEq/L (3.5-5.1); Troponin High Sensitivity 5.4 pg/mL (<58.9)
[2025-02-18 10:37] LABS: Bilirubin Indirect, Calculated 0.2 mg/dL (0.2-0.8)
--- NOTE | 2025-02-18 11:08 | RAD REPORT ---
EXAMINATION: CTA HEAD, CTA NECK CLINICAL INDICATION: Female, 75 years old. STROKE ALERT TECHNIQUE: Axial CT images were obtained through the head and neck after intravenous contrast utili angiographic protocol with 3D post-processing (maximum intensity projection images, volume rendered images and/or shaded surface rendered images). One or more of the following dose reduction techniques were used: Automated exposure control, adjustment of the mA and/or kV according to patient size, and/or iterative reconstruction. Unless otherwise specified, incidental findings do not require dedicated imaging follow-up. COMPARISON: No prior exam. FINDINGS: CTA head: ICA: The petrous, cavernous, and supraclinoid segments of the bilateral internal carotid arteries are normal. SCOTT: Anterior cerebral arteries are normal bilaterally. The anterior communicating artery is patent. MCA: Middle cerebral arteries are normal bilaterally. BOARD CERTIFIED ARTS THERAPIST: Posterior cerebral arteries are normal bilaterally. Vertebrobasilar: The vertebral arteries are patent. The basilar artery is normal in appearance. 3D images confirm these findings. CTA neck: AORTA: The imaged aortic arch is normal. Normal three-vessel configuration of the arch. CCA: No artifact The common carotid arteries are patent and normal in caliber. ICA/ECA: Bilateral internal and external carotid arteries are patent. There is no significant interna l carotid artery stenosis. VERTEBRAL: The cervical vertebral arteries are patent to the skull base. Vertebral arteries are codom inant. SOFT TISSUE: No significant neck soft tissue abnormalities. The visualized lung apices are clear. Moderate multilevel cervical spine degenerative changes present. 3D images confirm these findings. IMPRESSION: No intracranial large vessel occlusion or hemodynamically significant stenosis. No significant flow abnormality of the neck vessels is identified. NASCET criteria used to quantify ICA stenosis, with the following grading scheme: Mild 0-49% stenosis Moderate 50-69% stenosis Severe 70-99% stenosis Reference: [place] Symptomatic Carotid Endarterectomy Trial Collaborators; Tavo MAGAÑA, Irene DW, Lucas RB, et al. Beneficial effect of carotid endarterectomy in symptomatic patients with high-grade carotid stenosis. N Engl J Med. 1990 15;325(7):445-53.
--- NOTE | 2025-02-18 11:11 | RAD REPORT ---
EXAMINATION: MRI BRAIN WITHOUT CONTRAST CLINICAL INDICATION: Female, 75 years old.[facility] MAIN N Dizziness;Pain Bed Name: 2 TECHNIQUE: Multiplanar multisequence MR images of the brain were obtained without intravenous contras t. Unless otherwise specified, incidental findings do not require dedicated imaging follow-up. COMPARISON: Noncontrast head CT of the same day FINDINGS: INTRACRANIAL: Midline structures are unremarkable. Diffusion-weighted images show no acute or early subacute infarction. There is mild brain atrophy with mildT2/FLAIR hyperintensities in the periventricular and deep white matter regions, likely representing chronic microvascular ischemic katie nges. There is no mass effect or midline shift. No abnormal extraaxial fluid collection. VASCULATURE: Normal signal voids in the larger intracranial arteries and dural venous sinuses. SINUSES: The paranasal sinuses and mastoid air cells are predominantly clear. BONE: The marrow signal pattern is within normal limits. IMPRESSION: No significant intracranial abnormalities. Mild nonspecific white matter signal abnormalities, chronic small vessel ischemic changes.
--- NOTE | 2025-02-18 11:30 | RAD REPORT ---
EXAMINATION: CTA HEAD, CTA NECK CLINICAL INDICATION: Female, 75 years old. STROKE ALERT TECHNIQUE: Axial CT images were obtained through the head and neck after intravenous contrast utilizi angiographic protocol with 3D post-processing (maximum intensity projection images, volume rendered images and/or shaded surface rendered images). One or more of the following dose reduction techniques were used: Automated exposure control, adjustment of the mA and/or kV according to patient size, and/or iterative reconstruction. Unless otherwise specified, incidental findings do not require dedicated imaging follow-up. COMPARISON: No prior exam. FINDINGS: CTA head: ICA: The petrous, cavernous, and supraclinoid segments of the bilateral internal carotid arteries are normal. SCOTT: Anterior cerebral arteries are normal bilaterally. The anterior communicating artery is patent. MCA: Middle cerebral arteries are normal bilaterally. DIGITAL MEDIA PLANNER: Posterior cerebral arteries are normal bilaterally. Vertebrobasilar: The vertebral arteries are patent. The basilar artery is normal in appearance. 3D images confirm these findings. CTA neck: AORTA: The imaged aortic arch is normal. Normal three-vessel configuration of the arch. CCA: No artifact The common carotid arteries are patent and normal in caliber. ICA/ECA: Bilateral internal and external carotid arteries are patent. There is no significant interna l carotid artery stenosis. VERTEBRAL: The cervical vertebral arteries are patent to the skull base. Vertebral arteries are codom inant. SOFT TISSUE: No significant neck soft tissue abnormalities. The visualized lung apices are clear. Moderate multilevel cervical spine degenerative changes present. 3D images confirm these findings. IMPRESSION: No intracranial large vessel occlusion or hemodynamically significant stenosis. No significant flow abnormality of the neck vessels is identified. NASCET criteria used to quantify ICA stenosis, with the following grading scheme: Mild 0-49% stenosis Moderate 50-69% stenosis Severe 70-99% stenosis Reference: [place] Symptomatic Carotid Endarterectomy Trial Collaborators; Tavo ANNEM, Irene DW, Lucas RB, et al. Beneficial effect of carotid endarterectomy in symptomatic patients with high-grade carotid stenosis. N Engl J Med. 1990 15;325(7):445-53. Due to temporary technical issues with the PACS/[employer] reporting system, reports are being kenny d by the in-house radiologist without review as a courtesy to ensure prompt reporting the interpreting radiologist is fully responsible for the content of the report. Transcribed Date/Time: 02/18/2025 11:30 AM
--- NOTE | 2025-02-18 12:50 | RAD REPORT ---
EXAMINATION: ONE VIEW CHEST XR CLINICAL INDICATION: Female, 75 years old.,COUGH TECHNIQUE: Frontal chest projection is submitted. Examination is limited by patient positioning and t echnique. COMPARISON: 01/26/2023 FINDINGS: The lungs are well inflated and clear. No pneumothorax or sizable effusion. The heart is normal in s ize. Mediastinal contours are unremarkable. IMPRESSION: No acute intrathoracic abnormalities.
--- NOTE | 2025-02-18 13:42 | EDPHYS ---
Physician Documentation [facility] Name: Darlene Carpio Age: 75 yrs Sex: Female : 1950 Arrival Date: 02/18/2025 Time: 09:24 Bed 2 Private MD: ED Physician Vernon Harding HPI: 02/18 13:29 This 75 yrs old Female presents to ER via Ambulatory with complaints of S/S katie of Possible Stroke. 13:29 The patient's problem is reported as weakness, that is generalized. Onset: The katie symptoms/episode began/occurred 7 day(s) ago. Duration: The episode is continuous. Context: the episode(s) was witnessed, by family, daughter. The symptoms are alleviated by nothing. The symptoms are aggravated by nothing. Associated signs and symptoms: The patient has no apparent associated signs or symptoms. Severity of symptoms: At their worst the symptoms were moderate in the emergency department the symptoms are unchanged. Patient's baseline: Neuro: alert and fully oriented. The patient has experienced similar episodes in the past, several times. Historical: - Allergies: 09:40 PENICILLINS; ss - PMHx: 09:40 Depression; Diabetes - NIDDM; GERD; High Cholesterol; Hypertension; ss - Immunization history:: Adult Immunizations unknown. - Infectious Disease History:: Denies. - Social history:: Smoking status: Patient reports the use of cigarette tobacco products, smokes one-half pack cigarettes per day. ROS: 13:31 Constitutional: Negative for fever, chills, and weight loss, Eyes: Negative for injury, katie pain, redness, and discharge, ENT: Negative for injury, pain, and discharge, Neck: Negative for injury, pain, and swelling, Cardiovascular: Negative for chest pain, palpitations, and edema, Respiratory: Negative for shortness of breath, cough, wheezing, and pleuritic chest pain, Abdomen/GI: Negative for abdominal pain, nausea, vomiting, diarrhea, and constipation, Back: Negative for injury and pain, : Negative for injury, bleeding, discharge, and swelling, MS/Extremity: Negative for injury and deformity, Skin: Negative for injury, rash, and discoloration, Psych: Negative for depression, anxiety, suicide ideation, homicidal ideation, and hallucinations, Allergy/Immunology: Negative for hives, rash, and allergies, Endocrine: Negative for neck swelling, polydipsia, polyuria, polyphagia, and marked weight changes, Hematologic/Lymphatic: Negative for swollen nodes, abnormal bleeding, and unusual bruising, 13:31 Neuro: Positive for tingling, tremor, of the left arm, 13:42 : Negative for urinary symptoms, urinary frequency, small amounts, hematuria, flank katie pain, burning with urination, difficulty urinating, vaginal bleeding, vaginal discharge, Exam: 13:32 Radiologist reports: NEGATIVE katie 13:32 Constitutional: This is a well developed, well nourished patient who is awake, alert, and in no acute distress. Head/Face: Normocephalic, atraumatic. Eyes: Pupils equal round and reactive to light, extra-ocular motions intact. Lids and lashes normal. Conjunctiva and sclera are non-icteric and not injected. Cornea within normal limits. Periorbital areas with no swelling, redness, or edema. ENT: Nares patent. No nasal discharge, no septal abnormalities noted. Tympanic membranes are normal and external auditory canals are clear. Oropharynx with no redness, swelling, or masses, exudates, or evidence of obstruction, uvula midline. Mucous membranes moist. Neck: Trachea midline, no thyromegaly or masses palpated, and no cervical lymphadenopathy. Supple, full range of motion without nuchal rigidity, or vertebral point tenderness. No Meningismus. Chest/axilla: Normal chest wall appearance and motion. Nontender with no deformity. No lesions are appreciated. Cardiovascular: Regular rate and rhythm with a normal S1 and S2. No gallops, murmurs, or rubs. Normal PMI, no JVD. No pulse deficits. Respiratory: Lungs have equal breath sounds bilaterally, clear to auscultation and percussion. No rales, rhonchi or wheezes noted. No increased work of breathing, no retractions or nasal flaring. Abdomen/GI: Soft, non-tender, with normal bowel sounds. No distension or tympany. No guarding or rebound. No evidence of tenderness throughout. Back: No spinal tenderness. No costovertebral tenderness. Full range of motion. Female : Normal external genitalia. Skin: Warm, dry with normal turgor. Normal color with no rashes, no lesions, and no evidence of cellulitis. MS/ Extremity: Pulses equal, no cyanosis. Neurovascular intact. Full, normal range of motion., bilateral aka Neuro: Awake and alert, GCS 15, oriented to person, place, time, and situation. Cranial nerves II-XII grossly intact. Motor strength 5/5 in all extremities. Sensory grossly intact. Cerebellar exam normal. Normal gait. Psych: Awake, alert, with orientation to person, place and time. Behavior, mood, and affect are within normal limits. 13:32 ECG was reviewed by the Attending Physician. Vital Signs: 09:37 BP 152 / 86; Pulse 90; Resp 18; Temp 97.5(O); Pulse Ox 100% on R/A; Weight 65.32 kg; ss Height 5 ft. 10 in. ; Pain 0/10; 10:19 BP 129 / 83; Pulse 72; Resp 16; Pulse Ox 99% on R/A; dd2 11:30 BP 147 / 67; Pulse 72; Resp 17; Pulse Ox 100% on R/A; dd2 12:30 BP 138 / 65; Pulse 78; Resp 16; Pulse Ox 99% on R/A; dd2 13:30 BP 132 / 69; Pulse 75; Resp 16; Pulse Ox 100% on R/A; dd2 14:18 BP 139 / 75; Pulse 75; Resp 16; Temp 98.1; Pulse Ox 100% on R/A; dd2 09:37 Body Mass Index 20.66 (65.32 kg, 177.8 cm) 09:37 Pain Scale: Adult NIH Stroke Scale Scores: 11:02 NIHSS Score: 1 dd2 [place] Coma Score: 11:02 Eye Response: spontaneous(4). Motor Response: obeys commands(6). Verbal Response: dd2 oriented(5). Total: 15. MDM: 09:29 Medical Screening Exam initiated katie 13:37 TNKase (Tenecteplase) Screening: Indications: Definite evidence of stroke, ischemic, katie embolic, or hypertensive: No. Treatment will start within 4.5 hours onset of symptoms: No. No evidence of intracranial hemorrhage or CT of head and no evidence of peripheral hemorrhage or recent CVA: No. Consent for thrombolytic therapy: No. Contraindications: Other: TIME , NO CVA. Data reviewed: vital signs, nurses notes, lab test result(s), EKG, radiologic studies, CT scan, MRI, plain films. Consideration of Admission/Observation Escalation of care including admission/observation considered. I considered the following discharge prescriptions or medication management in the emergency department Medications were administered in the Emergency Department. See MAR. Independent interpretation of the following test(s) in the Emergency Department EKG: See my EKG interpretation above. Test considered but Not performed: Ultrasound NO CAROTID DOPPLER. Historians other than the Patient: Daughter/Son: DAUGHTER WELL INFORMED. Care significantly affected by the following chronic conditions: Diabetes, Hypertension, Obesity, GERD , DEPRESSION. 02/18 09:36 Order name: Basic Metabolic Panel; Complete Time: 12:52 [facility] 02/18 09:36 Order name: CBC with Diff; Complete Time: 12:52 [facility] 02/18 09:36 Order name: LFT's; Complete Time: 12:52 [facility] 02/18 09:36 Order name: Magnesium; Complete Time: 12:52 [facility] 02/18 09:36 Order name: NT PRO-BNP; Complete Time: 12:52 [facility] 02/18 09:36 Order name: PT-INR; Complete Time: 12:52 [facility] 02/18 09:36 Order name: Troponin HS; Complete Time: 12:52 [facility] 02/18 09:36 Order name: XRAY Chest (1 view); Complete Time: 12:52 [facility] 02/18 09:36 Order name: CT Stroke Brain w/o Contrast; Complete Time: 12:52 [facility] 02/18 09:36 Order name: CT Head Angio; Complete Time: 12:52 [facility] 02/18 09:36 Order name: CT Neck Angio; Complete Time: 12:52 [facility] 02/18 09:36 Order name: MRI - Brain Wo Cont; Complete Time: 12:52 [facility] 02/18 09:36 Order name: Cardiac monitoring; Complete Time: 11:16 [facility] 02/18 09:36 Order name: EKG - Nurse/Tech; Complete Time: 11:16 [facility] 02/18 09:36 Order name: IV Saline Lock; Complete Time: 10:35 [facility] 02/18 09:36 Order name: Labs collected and sent; Complete Time: 10:35 [facility] 02/18 09:36 Order name: O2 Per Protocol; Complete Time: 10:35 [facility] 02/18 09:36 Order name: O2 Sat Monitoring; Complete Time: 10:35 [facility] EC:32 Rate is 68 beats/min. QRS [place] is Normal. OK interval is normal. QRS interval is katie normal. QT interval is normal. No Q waves. T waves are Normal. No ST changes noted. Clinical impression: NSR w/ Non-specific ST/T Changes and No evidence of ischemia. Interpreted by me. Reviewed by me. Administered Medications: 10:54 Drug: foLIC Acid IVPB 1 mg IVPB once Route: IVPB; Site: left forearm; dd2 10:57 Follow up: IV Status: Completed infusion dd2 10:55 Drug: NS 0.9% IV 1000 ml IV at 1000 ml once; to be given as a bolus over 60 minutes dd2 Route: IV; Rate: 1000 ml; Site: left forearm; 12:00 Follow up: IV Status: Completed infusion dd2 14:05 Drug: Aspirin PO Chewable Tablet 81 mg PO once Route: PO; dd2 14:06 Follow up: Response: Medication administered at discharge. dd2 Disposition Summary: 02/18/25 13:41 Discharge Ordered Notes: Location: Home katie Problem: new katie Symptoms: have improved katie Condition: Stable katie Diagnosis - Weakness katie - Tobacco abuse counseling katie - Tobacco use katie Followup: katie - With: Private Physician - When: 2 - 3 days - Reason: Recheck today's complaints, Continuance of care, Re-evaluation by your physician Followup: katie - With: Cesar Vazquez MD - When: 1 - 2 days - Reason: Recheck today's complaints, Continuance of care, Re-evaluation by your physician Followup: katie - With: Sukhi Hammond MD - When: 1 - 2 days - Reason: Recheck today's complaints, Re-evaluation by your physician Discharge Instructions: - Discharge Summary Sheet katie - Steps to Quit Smoking katie - Health Risks of Smoking katie - Stroke Prevention katie - Weakness katie - Steps to Quit Smoking, [id number] katie - Weakness, [id number] katie - Aspirin and Your Heart katie - Stroke Prevention, Sdhl-[id number] katie - Deconditioning katie Forms: - Medication Reconciliation Form katie - Antibiotic Education katie - Prescription Opioid Use katie - Patient Portal Instructions katie - Leadership Thank You Letter katie Prescriptions: - Plavix 75 mg Oral Tablet - take 1 tablet ORAL route once daily; 20 tablet; Refills: 0, Product Selection katie Permitted - Folic Acid 1 mg Oral Tablet - take 1 tablet ORAL route once daily; 30 tablet; Refills: 0, Product Selection katie Permitted Critical care time excluding procedures: 13:37 Critical care time: Bedside Care: 20 minutes, Consultation: 15 minutes, Family katie Intervention: 10 minutes. Total time: 45 minutes NIH Stroke Scale - NIH Stroke Score Date: 02/18/2025 Time: 11:02 Total Score = 1 10. Dysarthria (speech clarity - read or repeat words) - 0(Normal) 11. Extinction and Inattention (visual/tactile/auditory/spatial/personal) - 0(No abnormality) 1a. Level of Consciousness (LOC) - 0(Alert) 1b. Level of Consciousness (LOC) (Month \T\ Age) - 0(Both) 1c. LOC Commands (Open \T\ Closes Eyes/Utility Arborist) - 0(Both) 2. Best Gaze (Lateral Gaze Paresis) - 0(Normal) 3. Visual Field Loss - 0(No visual loss) 4. Facial Palsy - 0(Normal) 5a. Left Arm: Motor (10-second hold) - 1(Drift) 5b. Right Arm: Motor (10-second hold) - 0(No drift) 6a. Left Leg: Motor (5-second hold - always test supine) - 0(No drift) 6b. Right Leg: Motor (5-second hold - always test supine) - 0(No drift) 7. Limb Ataxia (finger/nose \T\ heel/wagner - test with eyes open) - 0(Absent) 8. Sensory Loss (pinprick arms/legs/face) - 0(Normal) 9. Best Language: Aphasia (description/naming/reading) - 0(No aphasia) Initials: dd2 Signatures: Dispatcher [employer] Vernon Morton MD MD cha Blanchard, Shelby, RN RN ss DAVIS, DIANA, RN RN dd2 Corrections: (The following items were deleted from the chart) 09:37 09:36 BASIC METABOLIC PANEL+C.LAB.BRZ ordered. EDMS EDMS 09:37 09:37 CBC+H.LAB.BRZ ordered. EDMS EDMS 09:37 09:37 HEPATIC FUNCTION+C.LAB.BRZ ordered. EDMS EDMS 09:37 09:37 MAGNESIUM+C.LAB.BRZ ordered. EDMS EDMS 09:37 09:37 PROBNP+C.LAB.BRZ ordered. EDMS EDMS 09:37 09:37 PROTIME (+INR)+COAG.LAB.BRZ ordered. EDMS EDMS 09:37 09:37 Troponin High Sensitivity+C.LAB.BRZ ordered. EDMS EDMS :37 09:37 Chest Single View+RAD.RAD.BRZ ordered. EDMS EDMS 09:37 09:37 CT-STROKE BRAIN W/O CONTRAST+CT.RAD.BRZ ordered. EDMS EDMS 09:37 09:37 Head Angio+CT.RAD.BRZ ordered. EDMS EDMS 09:37 09:37 Neck Angio+CT.RAD.BRZ ordered. EDMS EDMS 09:37 09:37 Brain Wo Cont+MRI.RAD.BRZ ordered. EDMS EDMS
--- NOTE | 2025-02-18 13:42 | ER ---
Nurse's Notes [facility] Name: Darlene Carpio Age: 75 yrs Sex: Female : 1950 Arrival Date: 02/18/2025 Time: 09:24 Bed 2 Private MD: Diagnosis: Weakness;Tobacco abuse counseling;Tobacco use Presentation: 02/18 09:37 Chief complaint: Patient states: Extreme fatigue, L arm tingling/ burning and pain and ss generalized shakiness that has been ongoing x 1 week. Pt reports shaking is worse this morning. Coronavirus screen: Client denies travel out of the [place] in the last 14 days. Ebola Screen: Patient denies exposure to infectious person. Patient denies travel to an Ebola-affected area in the 21 days before illness onset. No acute neurological deficit is noted. Pre-hospital glucose is not applicable to this patient. Initial Sepsis Screen: Does the patient meet any 2 criteria? No. Patient's initial sepsis screen is negative. Does the patient have a suspected source of infection? No. Patient's initial sepsis screen is negative. Risk Assessment: Do you want to hurt yourself or someone else? Patient reports no desire to harm self or others. Onset of symptoms was February 11, 2025. 09:37 Method Of Arrival: Ambulatory ss 09:37 Acuity: JESSIE 3 ss Stroke Activation: Symptom onset > 6 hours Physician: ED Attending; Name: ; Notified At: ; Arrived At: Physician: Mid-Level Provider; Name: ; Notified At: ; Arrived At: Physician: [not used]; Name: ; Notified At: ; Arrived At: Physician: [not used]; Name: ; Notified At: ; Arrived At: Physician: [not used]; Name: ; Notified At: ; Arrived At: Historical: - Allergies: 09:40 PENICILLINS; ss - PMHx: 09:40 Depression; Diabetes - NIDDM; GERD; High Cholesterol; Hypertension; ss - Immunization history:: Adult Immunizations unknown. - Infectious Disease History:: Denies. - Social history:: Smoking status: Patient reports the use of cigarette tobacco products, smokes one-half pack cigarettes per day. Screenin:02 [facility] ED Fall Risk Assessment (Adult) History of falling in the last 3 months, dd2 including since admission No falls in past 3 months (0 pts) Confusion or Disorientation No (0 pts) Intoxicated or Sedated No (0 pts) Impaired Gait No (0 pts) Mobility Assist Device Used Yes (1 pt) Altered Elimination No (0 pt) Score/Fall Risk Level 0 - 2 = Low Risk Oriented to surroundings, Maintained a safe environment, Educated pt \T\ family on fall prevention, incl call for assistance when getting out of bed, Assessed \T\ reinforced patient's understanding of fall precautions, Hourly rounding (assess needs \T\ fall precautionary measures) done, Used ambulatory aids as needed (educated on \T\ assisted with). Abuse screen: Denies threats or abuse. Denies injuries from another. Nutritional screening: No deficits noted. Tuberculosis screening: No symptoms or risk factors identified. Assessment: 10:10 Reassessment: REPORT RECEIVED FROM LOUISE LINTON. PT OFF FLOOR IN CT. dd2 10:44 Reassessment: PT RETURNED FROM CT. dd2 11:02 VAN Scoring: Arm Drift: Minor drift Visual Disturbance: No visual disturbance noted. dd2 Aphasia: No aphasia noted. Neglect: No neglect noted. [place] Swallow Protocol Exclusion Criteria: Unable to remain alert for testing: No NPO for medical/surgical reason by provider order No Tracheostomy tube present No No thin liquids due to preexisting dysphagia/baseline modified diet thickened liquids No Exclusion Criteria Result: Proceed Brief Cognitive Screen What is your name? Normal, Where are you right now? Normal, What year is it? Normal. Oral Mechanism Examination Facial Symmetry: Normal, Motion: Normal, Lip Closure: Normal, 3 oz Water Swallow Challenge: Pt able to drink all water without stopping, coughing, choking or throat clearing: Yes Result: CLEMENT FROST Notified: Vernon Harding MD. TNKase (Tenecteplase) Screening: Contraindications: Patient reports onset of signs and symptoms of stroke greater than 6 hours ago: Yes. Not Applicable. General: Appears in no apparent distress. uncomfortable, well groomed, well nourished, Behavior is calm, cooperative, appropriate for age. Pain: Complains of pain in right hip Pain currently is 3 out of 10 on a pain scale. Neuro: Level of Consciousness is awake, alert, obeys commands, Oriented to person, place, time, situation, Appropriate for age Supervisor Firearms are equal bilaterally Moves all extremities. ROM INTACT IN ALL EXTREMITIES. MILD LT ARM DRIFT. Gait is unsteady, PT AMBULATES WITH A CANE. Speech is normal, Facial symmetry appears normal, Pupils are PERRLA, Tingling in left arm Reports numbness in left arm TINGLING AND NUMBNESS INTERMITTENT TO LT ARM. Cardiovascular: No deficits noted. Patient's skin is warm and dry. Respiratory: No deficits noted. Airway is patent Respiratory effort is even, unlabored, Respiratory pattern is regular, symmetrical. GI: No deficits noted. No signs and/or symptoms were reported involving the gastrointestinal system. : No deficits noted. No signs and/or symptoms were reported regarding the genitourinary system. EENT: No deficits noted. No signs and/or symptoms were reported regarding the EENT system. Derm: No deficits noted. No signs and/or symptoms reported regarding the dermatologic system. Musculoskeletal: Circulation, motion, and sensation intact. Range of motion: intact in all extremities, Reports pain in right hip. Vital Signs: 09:37 BP 152 / 86; Pulse 90; Resp 18; Temp 97.5(O); Pulse Ox 100% on R/A; Weight 65.32 kg; ss Height 5 ft. 10 in. ; Pain 0/10; 10:19 BP 129 / 83; Pulse 72; Resp 16; Pulse Ox 99% on R/A; dd2 11:30 BP 147 / 67; Pulse 72; Resp 17; Pulse Ox 100% on R/A; dd2 12:30 BP 138 / 65; Pulse 78; Resp 16; Pulse Ox 99% on R/A; dd2 13:30 BP 132 / 69; Pulse 75; Resp 16; Pulse Ox 100% on R/A; dd2 14:18 BP 139 / 75; Pulse 75; Resp 16; Temp 98.1; Pulse Ox 100% on R/A; dd2 09:37 Body Mass Index 20.66 (65.32 kg, 177.8 cm) ss 09:37 Pain Scale: Adult ss P[place]ger Coma Score: 11:02 Eye Response: spontaneous(4). Motor Response: obeys commands(6). Verbal Response: dd2 oriented(5). Total: 15. NIH Stroke Scale Scores: 11:02 NIHSS Score: 1 dd2 ED Course: 09:27 Patient arrived in ED. al6 09:29 Vernon Harding MD is Attending Physician. katie 09:40 Triage completed. ss 09:40 Arm band placed on right wrist. ss 09:51 Initial lab(s) drawn, by me, sent to lab. Inserted saline lock: 20 gauge in left wrist, ll1 using aseptic technique. Blood collected. Flushed with 10 mL NS. 10:05 CT Stroke Brain w/o Contrast In Process Unspecified. EDMS 10:10 CT Head Angio In Process Unspecified. EDMS 10:14 CT Neck Angio In Process Unspecified. EDMS 10:24 Radiology exam delayed due to patient in MRI. md2 10:33 MRI - Brain Wo Cont In Process Unspecified. EDMS 10:56 YOBANY NOYOLA, RN is Primary Nurse. dd2 11:02 Patient has correct armband on for positive identification. Bed in low position. Call dd2 light in reach. Side rails up X2. Client placed on continuous cardiac and pulse oximetry monitoring. NIBP monitoring applied. monitoring manager on. Door closed. Noise minimized. Warm blanket given. Pillow given. Verbal reassurance given. 11:02 No provider procedures requiring assistance completed. Patient maintains SpO2 dd2 saturation greater than 95% on room air. 11:12 XRAY Chest (1 view) In Process Unspecified. EDMS 11:16 EKG done, by ED staff, reviewed by Vernon Harding MD. dd2 13:39 Cesar Vazquez MD is Referral Physician. [facility] 13:39 Sukhi Hammond MD is Referral Physician. [facility] 14:18 Provided Education on: d/c education. dd2 14:18 IV discontinued, intact, bleeding controlled, No redness/swelling at site. Pressure dd2 dressing applied. Administered Medications: 10:54 Drug: foLIC Acid IVPB 1 mg IVPB once Route: IVPB; Site: left forearm; dd2 10:57 Follow up: IV Status: Completed infusion dd2 10:55 Drug: NS 0.9% IV 1000 ml IV at 1000 ml once; to be given as a bolus over 60 minutes dd2 Route: IV; Rate: 1000 ml; Site: left forearm; 12:00 Follow up: IV Status: Completed infusion dd2 14:05 Drug: Aspirin PO Chewable Tablet 81 mg PO once Route: PO; dd2 14:06 Follow up: Response: Medication administered at discharge. dd2 Medication: 11:02 VIS not applicable for this client. dd2 Outcome: 13:41 Discharge ordered by MD. katie 14:20 Patient left the ED. dd2 NIH Stroke Scale - NIH Stroke Score Date: 02/18/2025 Time: 11:02 Total Score = 1 10. Dysarthria (speech clarity - read or repeat words) - 0(Normal) 11. Extinction and Inattention (visual/tactile/auditory/spatial/personal) - 0(No abnormality) 1a. Level of Consciousness (LOC) - 0(Alert) 1b. Level of Consciousness (LOC) (Month \T\ Age) - 0(Both) 1c. LOC Commands (Open \T\ Closes Eyes/Telemarketing Manager) - 0(Both) 2. Best Gaze (Lateral Gaze Paresis) - 0(Normal) 3. Visual Field Loss - 0(No visual loss) 4. Facial Palsy - 0(Normal) 5a. Left Arm: Motor (10-second hold) - 1(Drift) 5b. Right Arm: Motor (10-second hold) - 0(No drift) 6a. Left Leg: Motor (5-second hold - always test supine) - 0(No drift) 6b. Right Leg: Motor (5-second hold - always test supine) - 0(No drift) 7. Limb Ataxia (finger/nose \T\ heel/wagner - test with eyes open) - 0(Absent) 8. Sensory Loss (pinprick arms/legs/face) - 0(Normal) 9. Best Language: Aphasia (description/naming/reading) - 0(No aphasia) Initials: dd2 Signatures: Dispatcher [employer] EDVernon Izquierdo MD MD cha Blanchard, Shelby, Lauren Martinez RN, RN RN ll1 Sarah Gamez md2 YOBANY NOYOLA RN RN dd2 Salena Alexandra6
[2025-02-18] MEDS ORDERED: ASPIRIN 81 MG CHEWABLE TABLET ONE (13:53)
[2025-02-18 14:33] VITALS: O2SAT 100
[2025-02-18 14:35] VITALS: BP 139/75; TEMP 98.1
== END 2025-02-18 14:20 | disposition home or self-care (01) ==
LOC: SUPCPDRO 09:24 → ER 09:24
DX: R53.1 Weakness (principal); Z72.0 Tobacco use; Z71.6 Tobacco abuse counseling; I10 Essential (primary) hypertension; E11.9 Type 2 diabetes mellitus without complications
CPT/HCPCS: 96361; 93005; 85025; 80048; 36415; 83735; 85610; 82565; 80076; 84484; 83880; 70496; 70498; 70450; 71045; 70551; 96374; 99285; Q9967; J7030